=== PATIENT | female | born 1945 | race Caucasian/White ===

== ENCOUNTER → 2017-10-11 11:39 | Outpatient (CLI) | payer MEDICARE, OTHER, SELFPAY ==
--- NOTE | 2017-10-11 | DI.MG.S_ITS ---
BILATERAL DIGITAL SCREENING MAMMOGRAM 3D/2D WITH CAD: 10/11/2017 CLINICAL: Routine screening. Comparison is made to exams dated: 08/18/2016 mammogram, 08/12/2015 mammogram, and 08/10/2014 mammogram - [facility]. The tissue of both breasts is heterogeneously dense. This may lower the sensitivity of mammography. Current study was also evaluated with a Computer Aided Detection (CAD) system. No significant masses, calcifications, or other findings are seen in either breast. There has been no significant interval change. IMPRESSION: NEGATIVE There is no mammographic evidence of malignancy. A 1 year screening mammogram is recommended. This exam was interpreted at Station ID: [id number]. NOTE: For mammograms, a report in lay terms will be sent to the patient. Approximately 15% of breast malignancies will not be visualized mammographically. In the management of a palpable breast mass, a negative mammogram must not discourage biopsy of a clinically suspicious lesion. Electronically Signed By: Pollo brennan/summer:10/11/2017 13:10:14 letter sent: Normal Exam ACR BI-RADS Category 1: Negative 3341F
== END ==
PROVIDERS: PCP Internal Medicine; Visit Provider Internal Medicine
DX: Z12.31 Encounter for screening mammogram for malignant neoplasm of breast (principal)
CPT/HCPCS: 77063; 77067

== ENCOUNTER → 2018-07-10 14:18 | Outpatient (CLI) | payer MEDICARE, OTHER, SELFPAY ==
--- NOTE | 2018-07-10 14:21 | DI.RAD.S_ITS ---
PROCEDURE: XR KNEE LT 3V INDICATIONS: knee pain TECHNIQUE: 3 views of the knee were acquired. COMPARISON: [facility], , KNEE 3V RIGHT, 11/26/2006, 11:09. FINDINGS: Bones: No fractures or dislocations. Mildly decreased medial joint space loss with marginal spur formation. No suspicious bony lesions. Soft tissues: Very small joint effusion. No suspicious soft tissue calcifications. IMPRESSION: 1. Very small joint effusion present. 2. Mild medial compartment osteoarthritic changes. Dictated by: Manda Wright M.D. on 07/10/2018 at 17:11 Approved by: Manda Wright M.D. on 07/10/2018 at 17:13
== END ==
PROVIDERS: PCP Internal Medicine; Visit Provider Physician Assistant
DX: M25.562 Pain in left knee (principal); M17.12 Unilateral primary osteoarthritis, left knee
CPT/HCPCS: 73562

== ENCOUNTER → 2018-07-31 17:02 | Outpatient (CLI) | payer MEDICARE, OTHER, SELFPAY ==
--- NOTE | 2018-07-31 | DI.MRI.S_ITS ---
PROCEDURE: MR KNEE LT WO CON INDICATIONS: PAIN IN LEFT KNEE TECHNIQUE: Noncontrast sagittal PD fast spin echo and T2 fast spin echo with fat saturation, sagittal 3-D FLASH with fat saturation; coronal T1 spin echo and PD fast spin echo with fat saturation, and axial PD fast spin echo with fat saturation through the knee. COMPARISON: None. FINDINGS: Image quality: Excellent. Menisci: Truncation of the free margin of the lateral meniscal body. Circumferential tear of the medial meniscus involving the anterior horn, body and posterior horn. There is also mild partial extrusion. Cruciate ligaments: The anterior and posterior cruciate ligaments appear intact. Medial structures: The medial collateral ligament appears intact. The posterior oblique ligament, semimembranosus tendon insertions, oblique popliteal ligament, and meniscocapsular junction appear intact. Visualized portions of the pes anserinus tendons appear normal. No abnormal bursal fluid. Lateral structures: The lateral collateral ligament, long and short heads of the biceps femoris tendon appear intact. The popliteus tendon appears normal; the popliteofibular ligament appears intact. The posterosuperior and anteroinferior popliteomeniscal fascicles appear intact. The arcuate and fabellofibular ligaments appear intact, on either side of the lateral inferior geniculate artery. Iliotibial band appears normal. Anterior structures: Quadriceps tendon intact. There is thickening and intrasubstance signal change involving the patellar tendon suggestive of chronic interstitial tear and tendinopathy. There is superficial infrapatellar subcutaneous edema adjacent to the proximal and distal patellar attachments. Patellar alignment is normal. No femoral trochlear dysplasia or ventral trochlear prominence. No edema in the infrapatellar fat pad. Bones and cartilage: No focal marrow contusion or discrete low signal fracture line. Within the medial compartment, diffuse mild partial thickness loss of the femoral and tibial articular cartilage. Within the lateral compartment, no definite focal articular cartilage defect although mild intrasubstance signal change involving the central tibial cartilage. Within the patellofemoral compartment, diffuse partial-thickness loss of the patellar articular cartilage with subchondral marrow cystic change/edema seen in the median patellar ridge. Femoral trochlear cartilage appears grossly intact. Joint space: Small joint effusion is present. There is a small Tinsley's cyst. No intra-articular loose bodies identified. A possible 5 mm loose body seen adjacent to the body of the lateral meniscus on image 23 series 10, image 107 series 8 IMPRESSION: Truncation of the free margin of the lateral meniscus. Complex circumferential macerated medial meniscal tear. 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 Mild tricompartmental degeneration. Small joint effusion. 5 mm loose body adjacent to the lateral meniscus body. Small Tinsley's cyst. Dictated by: Jonny Callahan M.D. on 08/01/2018 at 8:39 Approved by: Jonny Callahan M.D. on 08/01/2018 at 8:53
== END ==
PROVIDERS: PCP Internal Medicine; Visit Provider Internal Medicine
DX: M25.562 Pain in left knee (principal); S83.272A Complex tear of lateral meniscus, current injury, left knee, initial encounter; M67.864 Other specified disorders of tendon, left knee; M17.12 Unilateral primary osteoarthritis, left knee; M25.462 Effusion, left knee; M71.22 Synovial cyst of popliteal space [Baker], left knee
CPT/HCPCS: 73721

== ENCOUNTER → 2018-10-16 08:47 | Outpatient (CLI) | payer MEDICARE, OTHER, SELFPAY ==
--- NOTE | 2018-10-16 | DI.MG.S_ITS ---
BILATERAL DIGITAL SCREENING MAMMOGRAM 3D/2D WITH CAD: 10/16/2018 CLINICAL: Routine screening. Comparison is made to exams dated: 10/11/2017 mammogram, 08/18/2016 mammogram, 08/12/2015 mammogram, 07/14/2013 mammogram, and 08/10/2014 mammogram - [facility]. The tissue of both breasts is heterogeneously dense. This may lower the sensitivity of mammography. Current study was also evaluated with a Computer Aided Detection (CAD) system. There is an oval equal density asymmetry with an indistinct and circumscribed margin in the right breast middle depth superior region seen on the mediolateral oblique view only. No other significant masses, calcifications, or other findings are seen in either breast. IMPRESSION: INCOMPLETE: NEEDS ADDITIONAL IMAGING EVALUATION The oval equal density asymmetry in the right breast is indeterminate. Mediolateral and spot compression views as well as additional views with possible ultrasound are recommended. This exam was interpreted at Station ID: [id number]. NOTE: For mammograms, a report in lay terms will be sent to the patient. Approximately 15% of breast malignancies will not be visualized mammographically. In the management of a palpable breast mass, a negative mammogram must not discourage biopsy of a clinically suspicious lesion. Electronically Signed By: Nima loera/summer:10/16/2018 14:57:37 letter sent: Additional Imaging Needed ACR BI-RADS Category 0: Incomplete 3340F
== END ==
PROVIDERS: PCP Internal Medicine; Visit Provider Internal Medicine
DX: Z12.31 Encounter for screening mammogram for malignant neoplasm of breast (principal)
CPT/HCPCS: 77063; 77067

== ENCOUNTER → 2018-11-04 09:08 | Outpatient (CLI) | payer MEDICARE, OTHER, SELFPAY ==
--- NOTE | 2018-11-04 | DI.MG.S_ITS ---
UNILATERAL RIGHT DIGITAL DIAGNOSTIC MAMMOGRAM 3D/2D WITH ADDITIONAL VIEWS: 11/04/2018 CLINICAL: Additional evaluation requested from prior study. Comparison is made to exams dated: 10/16/2018 mammogram, 10/11/2017 mammogram, and 08/18/2016 mammogram - [facility]. The tissue of right breast is heterogeneously dense. This may lower the sensitivity of mammography. Ther oval equal density asymmetry with an indistinct and circumscribed margin in the right breast middle depth superior region seen on the mediolateral oblique view only is no longer seen with additional views and spot compression. There also is 0.7 cm x 0.8 cm irregular asymmetry with a circumscribed margin in the right breast at 12 o'clock anterior depth. No other significant masses or calcifications are seen in the breast. IMPRESSION: INCOMPLETE: NEEDS ADDITIONAL IMAGING EVALUATION The oval asymmetry in the right breast middle depth superior region resolves with special views. This will be confirmed with ultrasound. The 0.7 cm x 0.8 cm irregular asymmetry in the right breast at 12 o'clock anterior depth is indeterminate. An ultrasound is recommended. This was performed immediately following this exam. This exam was interpreted at Station ID: [id number]. NOTE: For mammograms, a report in lay terms will be sent to the patient. Approximately 15% of breast malignancies will not be visualized mammographically. In the management of a palpable breast mass, a negative mammogram must not discourage biopsy of a clinically suspicious lesion. Electronically Signed By: Manda pereyra/:11/04/2018 11:13:59 ACR BI-RADS Category 0: Incomplete 3340F
--- NOTE | 2018-11-04 | DI.US.S_ITS ---
LIMITED ULTRASOUND OF RIGHT BREAST: 11/04/2018 CLINICAL: Patient returns today to evaluate a focal asymmetry in the right breast. Comparison is made to exams dated: 11/04/2018 mammogram and 10/16/2018 mammogram - [facility]. Color flow and real-time ultrasound of the right breast 11-1 o'clock region were performed. Dominguez scale images of the real-time examination were reviewed. No abnormalities were seen sonographically in the right breast. No findings to correspond to the superior breast asymmetry seen on screening, or the 7 mm asymmetry seen on additional views. IMPRESSION: PROBABLY BENIGN No sonographic abnormality to correspond to mammographic findings. These areas are likely benign glandular tissue. A follow-up right mammogram in 6 months is recommended to demonstrate stability. Findings and recommendations were conveyed to the patient at time of exam. This exam was interpreted at Station ID: [id number]. Electronically Signed By: Manda pereyra/:11/04/2018 11:17:47 letter sent: Followup Recommended Ultrasound BI-RADS: 3 Probably benign
== END ==
PROVIDERS: PCP Internal Medicine; Visit Provider Internal Medicine
DX: R92.8 Other abnormal and inconclusive findings on diagnostic imaging of breast (principal); N64.89 Other specified disorders of breast
CPT/HCPCS: 76642; 77065; G0279

== ENCOUNTER → 2019-01-10 08:17 | Outpatient (CLI) | payer MEDICARE, OTHER, SELFPAY ==
[2019-01-10 10:02] LABS: Alanine Aminotransferase 14 IU/L (9-52); Aspartate Aminotransferase 19 IU/L (14-36); BUN Creatinine Ratio 24.3 (6-22); Blood Urea Nitrogen 17 mg/dL (7-17); Calcium 9.5 mg/dL (8.4-10.2); Carbon Dioxide 30 mmol/L (22-32); Chloride 102 mmol/L (98-107); Cholesterol 143 mg/dL (140-199); Estimated Glomerular Filt Rate > 60.0 mL/min (>60); Glucose 127 mg/dL (80-110); HDL Cholesterol 46 mg/dL (40-60); HEMOLYSIS < 15 (0-50); LDL Cholesterol Calculated 79 mg/dL (<100); Potassium 3.8 mmol/L (3.4-5.1); Sodium 142 mmol/L (137-145); Triglycerides 92 mg/dL (35-150)
[2019-01-10 10:12] LABS: B Type Natriuretic Peptide < 100 (<100)
[2019-01-10 10:34] LABS: Thyroid Stimulating Hormone 2.28 uIU/mL (0.47-4.68)
== END ==
PROVIDERS: PCP Internal Medicine; Visit Provider Internal Medicine
DX: I10 Essential (primary) hypertension (principal); E78.00 Pure hypercholesterolemia, unspecified; M79.89 Other specified soft tissue disorders; E11.9 Type 2 diabetes mellitus without complications; R06.02 Shortness of breath
CPT/HCPCS: 36415; 80048; 80061; 83036; 83880; 84443; 84450; 84460

== ENCOUNTER → 2019-01-22 15:08 | Outpatient (CLI) | payer MEDICARE, OTHER, SELFPAY | PROVIDERS: PCP Internal Medicine; Visit Provider Internal Medicine | DX: M85.851 Other specified disorders of bone density and structure, right thigh (principal); Z78.0 Asymptomatic menopausal state; E11.9 Type 2 diabetes mellitus without complications; Z90.722 Acquired absence of ovaries, bilateral | CPT/HCPCS: 77080 ==

== ENCOUNTER → 2019-02-17 14:57 | Outpatient (CLI) | payer MEDICARE, OTHER, SELFPAY ==
[2019-02-17 16:10] LABS: Add Manual Diff / Slide Review NO; Basophils Absolute Auto 0 /uL (0-100); Basophils Percent Auto 0.3 % (0-2); Eosinophils Absolute Auto 100 /uL (0-450); Eosinophils Percent Auto 1.2 % (2-4); Hematocrit 39.5 % (36-46); Hemoglobin 13.2 g/dL (12.0-16.0); Lymphocytes Absolute Auto 1800 /uL (1100-4500); Lymphocytes Percent Auto 30.3 % (25-40); Mean Corpuscular HGB Conc 33.4 % (30-36); Mean Corpuscular Hemoglobin 28.4 PG (26-34); Mean Corpuscular Volume 85.2 fL (80-100); Monocytes Absolute Auto 400 /uL (0-900); Monocytes Percent Auto 6.1 % (3-14); Neutrophils Absolute Auto 3700 /uL (1500-7000); Neutrophils Percent Auto 62.1 % (50-75); Platelet Count 230 X10^3/uL (150-400); Red Blood Cell Count 4.63 X10^6/uL (4.0-5.2); Red Cell Distribution Width 13.9 % (11.6-14.8)
[2019-02-17 16:39] LABS: HEMOLYSIS < 15 (0-50); Iron 95 ug/dL (37-170)
[2019-02-17 16:50] LABS: Percent Iron Saturation 26 % (15-50); Total Iron Binding Capacity 360 ug/dL (265-497); Transferrin 318 mg/dL (206-381)
[2019-02-17 16:59] LABS: Ferritin 33.1 ng/mL (11.1-264)
[2019-02-17 17:13] LABS: Vitamin B12 551 pg/mL (239-931)
== END ==
PROVIDERS: PCP Internal Medicine; Visit Provider Internal Medicine
DX: R53.82 Chronic fatigue, unspecified (principal); Z98.84 Bariatric surgery status
CPT/HCPCS: 36415; 82607; 82728; 83540; 83550; 85025

== ENCOUNTER → 2019-05-05 09:15 | Outpatient (CLI) | payer MEDICARE, OTHER, SELFPAY ==
--- NOTE | 2019-05-05 | DI.MG.S_ITS ---
UNILATERAL RIGHT DIGITAL DIAGNOSTIC MAMMOGRAM 3D/2D SHORT-TERM FOLLOW-UP: 05/05/2019 CLINICAL: Patient returns for a 6 month follow up of the right breast. Comparison is made to exams dated: 11/04/2018 mammogram, 10/16/2018 mammogram, and 10/11/2017 mammogram - [facility]. The tissue of right breast is heterogeneously dense. This may lower the sensitivity of mammography. There is a benign oval low density asymmetry with an indistinct margin in the right breast middle depth superior region seen on the mediolateral oblique view only. This is less prominent compared to the prior study and similar to older previous exams. No other significant masses or calcifications are seen in the breast. IMPRESSION: There is no mammographic evidence of malignancy. Return to annual mammogram screening schedule is recommended. This exam was interpreted at Station ID: [id number]. NOTE: For mammograms, a report in lay terms will be sent to the patient. Approximately 15% of breast malignancies will not be visualized mammographically. In the management of a palpable breast mass, a negative mammogram must not discourage biopsy of a clinically suspicious lesion. Electronically Signed By: Nima loera/:05/05/2019 09:50:01 letter sent: Normal Exam ACR BI-RADS Category 2: Benign Finding(s) 3342F
== END ==
PROVIDERS: PCP Internal Medicine; Visit Provider Internal Medicine
DX: R92.8 Other abnormal and inconclusive findings on diagnostic imaging of breast (principal); N64.89 Other specified disorders of breast
CPT/HCPCS: 77065; G0279

== ENCOUNTER → 2019-07-24 12:52 | Outpatient (CLI) | payer MEDICARE, OTHER, SELFPAY ==
--- NOTE | 2019-07-24 | DI.MRI.S_ITS ---
PROCEDURE: MR KNEE RT WO CON INDICATIONS: Unspecified internal derangement of right knee TECHNIQUE: Noncontrast sagittal PD fast spin echo and T2 fast spin echo with fat saturation, sagittal 3-D FLASH with fat saturation; coronal T1 spin echo and PD fast spin echo with fat saturation, and axial PD fast spin echo with fat saturation through the knee. COMPARISON: [facility], MR, MR KNEE LT WO CON, 07/31/2018, 17:25. FINDINGS: Image quality: Excellent. Menisci: Truncated appearance of medial meniscus is seen suggestive of interval medial partial meniscectomy. There is signal abnormality involving posterior horn remnant of medial meniscus extending to superior articulating surface concerning for recurrent tear. There is signal abnormality involving anterior horn of lateral meniscus extending to superior articulating surface concerning for subtle anterior horn lateral meniscal tear. The meniscal root ligaments appear intact. Cruciate ligaments: The anterior and posterior cruciate ligaments appear intact. Medial structures: The medial collateral ligament appears intact. The posterior oblique ligament, semimembranosus tendon insertions, oblique popliteal ligament, and meniscocapsular junction appear intact. Visualized portions of the pes anserinus tendons appear normal. No abnormal bursal fluid. Lateral structures: The lateral collateral ligament, long and short heads of the biceps femoris tendon appear intact. The popliteus tendon appears normal; the popliteofibular ligament appears intact. The posterosuperior and anteroinferior popliteomeniscal fascicles appear intact. The arcuate and fabellofibular ligaments appear intact, on either side of the lateral inferior geniculate artery. Iliotibial band appears normal. Anterior structures: Large complex fluid collection is noted in soft tissue along anterolateral patella and patellar tendon measures up to 6.7 x 4.4 x 10 cm in its largest transverse, AP and craniocaudal dimensions with internal hypointense signal debris. Finding may represent a large anterior subcutaneous soft tissue hematoma versus fluid distention of the prepatellar bursa with bursitis. The quadriceps and patellar tendons appear intact. Patellar alignment is normal. No femoral trochlear dysplasia or ventral trochlear prominence. No edema in the infrapatellar fat pad. Bones and cartilage: No bone marrow contusions or fractures. Ywkz-ek-pjdokxob joint compartment osteophytes and chondromalacia is seen most prominent in the medial femoral tibial compartment. Joint space: There is small amount of joint fluid. 3.1 x 1.3 x 6.4 cm popliteal cyst is seen. Normal appearing synovial plicae are incidentally noted. IMPRESSION: 1. Suggestion of interval partial medial meniscectomy with truncated appearance of medial meniscus. There is suggestion of recurrent tear involving posterior horn remnant and of medial meniscus extending to superior articulating surface. Finding is also concerning for subtle oblique tear involving anterior horn of lateral meniscus extending to superior articulating surface. 2. Cruciate ligaments are intact. 3. Large complex fluid collection in deep soft tissue along anterolateral aspect of patella and patella tendon which may represent organizing hematoma within soft tissue versus complex prepatellar bursal fluid secondary to bursitis. Consider aspiration of the fluid for further analysis if indicated. 4. 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 5. Small amount of joint fluid and popliteal cyst as above. Dictated by: Fly Crocker M.D. on 07/24/2019 at 17:08 Approved by: Fly Crocker M.D. on 07/24/2019 at 17:39
== END ==
PROVIDERS: PCP Internal Medicine; Referring Provider Orthopaedic Surgery Adult Reconstructive Orthopaedic Surgery; Visit Provider Orthopaedic Surgery Adult Reconstructive Orthopaedic Surgery
DX: M23.91 Unspecified internal derangement of right knee (principal); M17.11 Unilateral primary osteoarthritis, right knee; M94.261 Chondromalacia, right knee; M71.21 Synovial cyst of popliteal space [Baker], right knee
CPT/HCPCS: 73721

== ENCOUNTER → 2020-05-17 08:57 | Outpatient (CLI) | payer MEDICARE, OTHER, SELFPAY ==
[2020-05-17 10:03] LABS: Alanine Aminotransferase 14 IU/L (<35); Albumin 4.1 g/dL (3.5-5.0); Albumin Globulin Ratio 1.5 (1.0-2.8); Alkaline Phosphatase 47 U/L (38-126); Aspartate Aminotransferase 23 IU/L (14-36); Bilirubin Total 0.4 mg/dL (0.2-1.3); Blood Urea Nitrogen 21 mg/dL (7-17); Calcium 9.1 mg/dL (8.4-10.2); Carbon Dioxide 31 mmol/L (22-32); Chloride 102 mmol/L (98-107); Cholesterol 138 mg/dL (140-199); Estimated Glomerular Filt Rate > 60.0 mL/min (>60); Globulin 2.7 g/dL (1.7-4.1); Glucose 121 mg/dL (80-110); HDL Cholesterol 40 mg/dL (40-60); HEMOLYSIS < 15 (0-50); LDL Cholesterol Calculated 84 mg/dL (<100); Potassium 3.9 mmol/L (3.4-5.1); Sodium 138 mmol/L (137-145); Total Protein 6.8 g/dL (6.3-8.2); Triglycerides 71 mg/dL (35-150)
== END ==
PROVIDERS: PCP Internal Medicine; Referring Provider Internal Medicine; Visit Provider Internal Medicine
DX: R53.82 Chronic fatigue, unspecified (principal); E78.00 Pure hypercholesterolemia, unspecified; E11.9 Type 2 diabetes mellitus without complications; I10 Essential (primary) hypertension
CPT/HCPCS: 36415; 80053; 80061; 83036

== ENCOUNTER → 2020-07-22 12:58 | Outpatient (CLI) | payer MEDICARE, OTHER, SELFPAY ==
[2020-07-22] MEDS: COVID-19 VACC, Ad26(JANSSEN)/PF 0.5 ML IM (13:25)
== END ==
PROVIDERS: PCP Internal Medicine; Visit Provider Internal Medicine
DX: Z23 Encounter for immunization (principal)
CPT/HCPCS: 0031A; 91303

== ENCOUNTER → 2020-08-11 09:10 | Outpatient (CLI) | payer MEDICARE, OTHER, SELFPAY ==
--- NOTE | 2020-08-11 09:06 | DI.RAD.S_ITS ---
PROCEDURE: XR CHEST 2V INDICATIONS: PRECORDIAL PAIN TECHNIQUE: 2 views of the chest were acquired. COMPARISON: None. FINDINGS: Surgical changes and devices: None. Lungs and pleura: Lungs are clear. No pleural effusions or pneumothorax. Mediastinum: Mediastinal contours are normal. Heart size is normal. Bones and chest wall: No suspicious bony abnormalities. Soft tissues appear unremarkable. IMPRESSION: Normal for age, source of current pain symptoms is not seen. Dictated by: Darvin Hancock M.D. on 08/11/2020 at 10:38 Approved by: Darvin Hancock M.D. on 08/11/2020 at 10:38
== END ==
PROVIDERS: PCP Internal Medicine; Referring Provider Internal Medicine; Visit Provider Internal Medicine
DX: R07.2 Precordial pain (principal)
CPT/HCPCS: 71046

== ENCOUNTER → 2020-08-12 09:02 | Outpatient (CLI) | payer MEDICARE, OTHER, SELFPAY ==
--- NOTE | 2020-08-12 09:04 | DI.ECHO.S_ITS ---
[place] +---------+ Hospital +---------+ : : [address] : : : : [id number] : : : : Phone: [phone] Echocardiogram Report + + :Name: KENDRICK BULLARD Study Date: 08/12/2020 Height: 66 in : :[facility] ReadingLocation: Weight: 175 lb : : Gender: Female BSA: 1.9 m2 : :: 1945 Age: 75 yrs BP: 154/83 mmHg: :Reason For Study: Chest pain : :Ordering Physician: PEDRO PABLO, : :MORALES Performed By: Felix Espinoza : :Referring: MORALES CHAMORRO : + + Interpretation Summary The left ventricle is normal in size. The ejection fraction is estimated to be 60-65%. No significant change in LV systolic function from the previous study. Diastolic parameters suggest a pseudonormalization pattern, consistent with probable elevated filling pressures. The right ventricle is normal in size and function. There is mild tricuspid regurgitation. The right ventricular systolic pressure is estimated to be at least 25 mmHg based on an estimated right atrial pressure of 3 mm Hg. Procedure: A two-dimensional transthoracic echocardiogram with color flow and Doppler was performed. The study quality was technically adequate. Comparison is made with the echocardiogram of 08/07/2014. The patient was in sinus rhythm with heart rates between 66-74 bpm during the exam. Left Ventricle: The left ventricle is normal in size. Proximal septal thickening is noted. There is no echo evidence for significant left ventricular outflow tract obstruction. There is no thrombus. Left ventricular systolic function is normal. The ejection fraction is estimated to be 60-65%. There are no focal wall motion abnormalities. MV E/A: 1.2 Med Peak E' Aydin: 6.3 cm/sec E/E' med: 17.0. Diastolic parameters suggest a pseudonormalization pattern, consistent with probable elevated filling pressures. Right Ventricle: The right ventricle is normal in size and function. Atria: Both atria are normal in size. The left atrium has mildly decreased in size since the prior echo exam. There is no Doppler evidence for an interatrial shunt. Mitral Valve: The mitral valve leaflets appear mildly thickened, but open well. There is mild mitral annular calcification. There is trace mitral regurgitation. Aortic Valve: There is mild aortic valve sclerosis. The aortic valve is trileaflet. The aortic valve is mildly calcified. There is no aortic valve stenosis. There is trace aortic regurgitation. Tricuspid Valve: The tricuspid valve is normal in structure and function. There is mild tricuspid regurgitation. The right ventricular systolic pressure is estimated to be at least 25 mmHg based on an estimated right atrial pressure of 3 mm Hg. Pulmonic Valve: The pulmonic valve is not well seen, but is grossly normal. There is trace pulmonic regurgitation. Great Vessels: The aortic root is normal size. The dimensions of the ascending aorta are normal. The IVC is of normal diameter and collapses greater than 50% with a sniff. This suggests a low right atrial pressure of 3 mm Hg. Pericardium/ Pleura There is no pericardial effusion. There is no pleural effusion. MMode/2D Measurements & Calculations LVIDd: 4.4 cm LVOT diam: 2.1 cm LVIDs: 2.9 cm Ao root diam: 3.1 cm FS: 34.3 % asc Aorta Diam: 3.2 cm IVSd: 0.75 cm LVPWd: 0.82 cm LV powell. diameter/BSA (cm/m^2): 2.3 LV sys. diameter/BSA (cm/m^2): 1.5 LA A2 area: 15.6 cm2 RA long axis: 4.1 cm LA A4 area: 15.0 cm2 RA area: 11.5 cm2 LA length (vol): 4.2 cm RA vol: 27.4 ml LA vol: 46.7 ml RA : 14.5 ml/m2 LA vol index: 24.7 ml/m2 IVC diam: 1.6 cm RVD1 (basal): 3.3 cm TAPSE: 2.2 cm Doppler Measurements & Calculations Ao V2 max: 151.6 cm/sec LVOT Max Aydin: 141.7 cm/sec Ao V2 mean: 98.6 cm/sec LV V1 max P.0 mmHg Ao max P.2 mmHg LV V1 VTI: 28.3 cm Ao mean P.4 mmHg ERIK(I,D): 3.2 cm2 Ao V2 VTI: 30.3 cm ERIK(V,D): 3.2 cm2 sev ratio: 0.94 ERIK indexed to BSA (cm^2/m^2): 1.7 MV E max aydin: 107.4 cm/sec TR max aydin: 234.7 cm/sec MV A max aydin: 86.4 cm/sec TR max P.0 mmHg MV E/A: 1.2 PA V2 max: 90.4 cm/sec Med Peak E' Aydin: 6.3 cm/sec PA V2 mean: 64.0 cm/sec E/E' med: 17.0 PA mean P.8 mmHg Lat Peak E' Aydin: 9.7 cm/sec PA pr(Accel): 41.6 mmHg E/E' lat: 11.1 E/e' average: 14.0 MV dec time: 0.17 sec SV(LVOT): 97.8 ml Reading Physician:05:26 PM
== END ==
PROVIDERS: PCP Internal Medicine; Referring Provider Internal Medicine; Visit Provider Internal Medicine
DX: R07.9 Chest pain, unspecified (principal); I07.1 Rheumatic tricuspid insufficiency
CPT/HCPCS: 93306

== ENCOUNTER → 2020-09-27 11:05 | Outpatient (CLI) | payer MEDICARE, OTHER, SELFPAY ==
--- NOTE | 2020-09-27 11:06 | DI.MG.S_ITS ---
BILATERAL DIGITAL SCREENING MAMMOGRAM 3D/2D WITH CAD: 09/27/2020 CLINICAL: Routine screening. Comparison is made to exams dated: 10/16/2018 mammogram, 10/11/2017 mammogram, and 08/18/2016 mammogram - [facility]. The tissue of both breasts is heterogeneously dense. This may lower the sensitivity of mammography. Current study was also evaluated with a Computer Aided Detection (CAD) system. No significant masses, calcifications, or other findings are seen in either breast. There has been no significant interval change. IMPRESSION: NEGATIVE There is no mammographic evidence of malignancy. A 1 year screening mammogram is recommended. This exam was interpreted at Station ID: [id number]. NOTE: For mammograms, a report in lay terms will be sent to the patient. Approximately 15% of breast malignancies will not be visualized mammographically. In the management of a palpable breast mass, a negative mammogram must not discourage biopsy of a clinically suspicious lesion. Electronically Signed By: Morgan Mendoza M.D., jr/summer:09/28/2020 11:32:56 letter sent: Normal Exam ACR BI-RADS Category 1: Negative 3341F
== END ==
PROVIDERS: PCP Internal Medicine; Referring Provider Internal Medicine; Visit Provider Internal Medicine
DX: Z12.31 Encounter for screening mammogram for malignant neoplasm of breast (principal)
CPT/HCPCS: 77063; 77067

== ENCOUNTER → 2020-12-16 08:55 | Outpatient (CLI) | payer MEDICARE, OTHER, SELFPAY ==
[2020-12-16 10:01] LABS: Add Manual Diff / Slide Review NO; Basophils Absolute Auto 0 /uL (0-100); Basophils Percent Auto 0.4 % (0-2); Eosinophils Absolute Auto 100 /uL (0-450); Eosinophils Percent Auto 2.6 % (2-4); Hematocrit 35.4 % (36-46); Hemoglobin 11.8 g/dL (12.0-16.0); Lymphocytes Absolute Auto 1400 /uL (1100-4500); Lymphocytes Percent Auto 38.6 % (25-40); Mean Corpuscular HGB Conc 33.3 % (30-36); Mean Corpuscular Hemoglobin 28.9 PG (26-34); Mean Corpuscular Volume 86.9 fL (80-100); Monocytes Absolute Auto 200 /uL (0-900); Monocytes Percent Auto 6.7 % (3-14); Neutrophils Absolute Auto 1800 /uL (1500-7000); Neutrophils Percent Auto 51.7 % (50-75); Platelet Count 208 X10^3/uL (150-400); Red Blood Cell Count 4.07 X10^6/uL (4.0-5.2); Red Cell Distribution Width 14.4 % (11.6-14.8); White Blood Cell Count 3.5 X10^3/uL (4.5-11.0)
[2020-12-16 10:28] LABS: Hemoglobin A1C% w Est Avg Glu 6.4 % (4.0-6.0)
[2020-12-16 10:43] LABS: HEMOLYSIS < 15 (0-50); Iron 85 ug/dL (37-170)
[2020-12-16 10:55] LABS: Percent Iron Saturation 31 % (15-50); Total Iron Binding Capacity 271 ug/dL (265-497); Transferrin 192 mg/dL (206-381)
[2020-12-16 11:13] LABS: Ferritin 30 ng/mL (11-264)
[2020-12-16 16:09] LABS: Creatinine Urine Random 72.3 mg/dL; Protein (Total) Urine Random 9 mg/dL (0-12); Protein Creatinine Ratio Urine 0.12 GRAM/24H
== END ==
PROVIDERS: PCP Internal Medicine; Referring Provider Internal Medicine; Visit Provider Internal Medicine
DX: E11.59 Type 2 diabetes mellitus with other circulatory complications (principal); Z98.84 Bariatric surgery status
CPT/HCPCS: 36415; 82570; 82728; 83036; 83540; 83550; 84156; 85025

== ENCOUNTER → 2021-07-07 14:05 | Outpatient (CLI) | payer MEDICARE, OTHER, SELFPAY ==
--- NOTE | 2021-07-07 | DI.RAD.S_ITS ---
PROCEDURE: XR HIP W PEL IF DONE LT 2V INDICATIONS: Pain in left hip TECHNIQUE: AP pelvis with lateral view(s) of the left hip(s). COMPARISON: CT, ABDOMEN/PELVIS WITH CONTRAST, 04/21/2011, 14:30. FINDINGS: Bones: No fractures or dislocations. Pelvic ring appears intact. No suspicious bony lesions. Mild to moderate symmetric axial joint space narrowing with periarticular osteophyte formation bilaterally. Degenerative disc and facet disease involves the inferior lumbar spine. Soft tissues: The visualized bowel gas pattern is normal. No suspicious soft tissue calcifications. IMPRESSION: Ohda-ht-noflelpp symmetric hip joint degeneration. Dictated by: Donta Apodaca [facility] Interpreted: Rosalinda Madison MD on 07/07/2021 at 14:37 Approved by: Rosalinda Madison M.D. on 07/07/2021 at 20:43
== END ==
PROVIDERS: PCP Internal Medicine; Referring Provider Internal Medicine; Visit Provider Internal Medicine
DX: M25.552 Pain in left hip (principal); M16.12 Unilateral primary osteoarthritis, left hip
CPT/HCPCS: 73502

== ENCOUNTER 2021-07-22 14:58 | Emergency (ER) | payer MEDICARE, OTHER, SELFPAY ==
[2021-07-22] VITALS (23 sets, daily range): BP systolic 84–156; BP diastolic 56–93; PULSE 71–121; RESP 11–27; TEMP 36.6; O2SAT 91–100; BMI 24.2
--- NOTE | 2021-07-22 15:26 | DI.RAD.S_ITS ---
PROCEDURE: XR CHEST 1V INDICATIONS: Chest pain TECHNIQUE: One view of the chest was acquired. COMPARISON: None. FINDINGS: Surgical changes and devices: None. Lungs and pleura: Lungs are clear. No pleural effusions or pneumothorax. Mediastinum: Mediastinal contours appear normal. Heart size is normal. Bones and chest wall: No suspicious bony lesions. Overlying soft tissues appear unremarkable. IMPRESSION: No acute cardiopulmonary process demonstrated radiographically. Dictated by: Morgan Mendoza M.D. on 07/22/2021 at 16:28 Approved by: Morgan Mendoza M.D. on 07/22/2021 at 16:28
[2021-07-22 15:52] LABS: Add Manual Diff / Slide Review NO; Basophils Absolute Auto 0 /uL (0-100); Basophils Percent Auto 0.2 % (0-2); Eosinophils Absolute Auto 100 /uL (0-450); Eosinophils Percent Auto 1.1 % (2-4); Hematocrit 33.6 % (36-46); Hemoglobin 11.3 g/dL (12.0-16.0); Lymphocytes Absolute Auto 1400 /uL (1100-4500); Mean Corpuscular HGB Conc 33.6 % (30-36); Mean Corpuscular Volume 86.4 fL (80-100); Monocytes Absolute Auto 300 /uL (0-900); Monocytes Percent Auto 5.6 % (3-14); Neutrophils Absolute Auto 4200 /uL (1500-7000); Neutrophils Percent Auto 70.1 % (50-75); Platelet Count 208 X10^3/uL (150-400); Red Blood Cell Count 3.89 X10^6/uL (4.0-5.2); Red Cell Distribution Width 13.9 % (11.6-14.8); White Blood Cell Count 6.1 X10^3/uL (4.5-11.0)
[2021-07-22 16:01] LABS: Alanine Aminotransferase 13 IU/L (<35); Albumin 4.5 g/dL (3.5-5.0); Albumin Globulin Ratio 1.6 (1.0-2.8); Alkaline Phosphatase 47 U/L (38-126); Aspartate Aminotransferase 34 IU/L (14-36); BUN Creatinine Ratio 38.6 (6-22); Bilirubin Total 0.6 mg/dL (0.2-1.3); Blood Urea Nitrogen 27 mg/dL (7-17); Carbon Dioxide 31 mmol/L (22-32); Chloride 104 mmol/L (98-107); Creatine Kinase 152 U/L (30-135); Estimated Glomerular Filt Rate > 60.0 mL/min (>60); Globulin 2.8 g/dL (1.7-4.1); Glucose 198 mg/dL (80-110); HEMOLYSIS 23 (0-50); Lipase 113 U/L (23-300); Magnesium 1.3 mg/dL (1.6-2.3); Potassium 3.7 mmol/L (3.4-5.1); Sodium 140 mmol/L (137-145); Total Protein 7.3 g/dL (6.3-8.2)
[2021-07-22 16:16] LABS: CKMB % Relative Index 5.6 % (1.5-5.0); Creatine Kinase MB 8.52 ng/mL (<2.37)
--- NOTE | 2021-07-22 16:40 | ED.CHESTPAIN ---
HPI - Chest Pain <Alexandra Martinez DO - Last Filed: 07/25/21 09:09> General Chief Complaint: Chest Pain Stated Complaint: Chest Pains Time Seen by Provider: 07/22/21 16:39 Source: patient Mode of arrival: Ambulatory History of Present Illness HPI narrative: Patient is a 76-year-old female history of diabetes hypertension hyperlipidemia presenting today with right-sided chest discomfort. She says she has had off and on for a year but definitely much worse over the last 3 days. It does not radiate she describes it as a small discomfort. She denies any shortness of breath. She says she notices it more at night. It has not stopped her from doing her daily activities to. But she decided to get it checked out today. She has no known history of coronary artery disease Related Data Home Medications Medication Instructions Recorded Confirmed VITAMIN D (Vitamin D3) 2,000 unit PO QDAY #0 07/23/11 07/05/18 benazepril 20 mg tablet 20 mg PO HS #0 07/23/11 07/05/18 calcium carbonate 200 mg calcium #0 04/16/17 07/05/18 (500 mg) chewable tablet gabapentin 100 mg capsule #0 04/16/17 07/05/18 glipizide 2.5 mg tablet, extended #0 04/16/17 07/05/18 release 24 hr (Glucotrol XL) [cranberry extract] #0 08/30/17 07/05/18 [stool softeners] #0 08/30/17 07/05/18 multivitamin (Multiple Vitamins) #0 08/30/17 07/05/18 aspirin 81 mg tablet,delayed 81 mg PO DAILY 07/05/18 07/05/18 release (Adult Low Dose Aspirin) atorvastatin 20 mg tablet 20 mg PO DAILY 07/05/18 07/05/18 metformin 1,000 mg tablet 1,000 mg PO BID 07/05/18 07/05/18 oxybutynin chloride 5 mg tablet 5 mg PO BID 07/05/18 07/05/18 potassium 99 mg tablet 99 mg PO DAILY 07/05/18 07/05/18 turmeric root extract 500 mg 500 mg PO DAILY 07/05/18 07/05/18 capsule Previous Rx's Medication Instructions Recorded nystatin-triamcinolone 100,000 1 tye TOPICAL BID #15 gm 08/30/17 unit/g-0.1 % topical cream Allergies Allergy/AdvReac Type Severity Reaction Status Date / Time preservative in eye drops Allergy Unknown Uncoded 07/22/21 15:25 Review of Systems <Alexandra Martinez DO - Last Filed: 07/25/21 09:09> Review of Systems Narrative: GENERAL: Denies chills, fatigue, malaise, fever, sweats, travel HEENT: Denies sinus pain, ear pain, sore throat, difficulty swallowing, neck pain RESPIRATORY: Denies dyspnea, cough, wheezing, hemoptysis, sputum. CARDIOVASCULAR: See HPI GASTROINTESTINAL: Denies nausea, vomiting, abdominal pain, diarrhea, constipation, melena. : Denies dysuria, frequency, incontinence, hematuria, urinary retention, flank pain. MUSCULOSKELETAL: Denies weakness, joint pain, or bony pain SKIN: No rash, no erythema, no pruritus NEUROLOGIC: Denies weakness, dizziness, headache, numbness, change in speech, confusion PSYCHIATRIC: No concerning psychosocial issues. 12 point review of systems is negative except for those stated above and HPI Patient History <Alexandra Martinez DO - Last Filed: 07/25/21 09:09> Social History Smoking Status: Never smoker Smoking Status: Never smoker alcohol intake frequency: other Substance Use Type: does not use Exam <Alexandra Martinez DO - Last Filed: 07/25/21 09:09> Initial Vital Signs Initial Vital Signs: Vital Signs Temperature 98 F 07/22/21 15:22 GENERAL: Alert well-appearing 76-year-old female appears younger than stated age HEENT: Head atraumatic,EOMI, pupils reactive, face symmetric, [moist] mucous membranes CARDIOVASCULAR: Regular rate and rhythm without murmurs, rubs or gallops. Pain is not reproducible with palpation or move RESPIRATORY: Breath sounds equal bilaterally, no wheezes rales or rhonchi. ABDOMEN: Soft, nontender. Normoactive bowel sounds all 4 quadrants. No guarding or rebound. EXTREMITIES: Normal range of motion, no clubbing or edema. Neurovascularly intact NEUROLOGICAL: Alert and oriented x4.Normal gait and speech. SKIN: Warm, dry, no laceration, no petechiae, no rashes or lesions. <DO Kavita Banda Last Filed: 07/28/21 08:20> Initial Vital Signs Initial Vital Signs: Vital Signs Temperature 98 F 07/22/21 15:22 <Pelon French MD - Last Filed: 07/23/21 11:30> Initial Vital Signs Initial Vital Signs: Vital Signs Temperature 98 F 07/22/21 15:22 Course <Alexandra Martinez DO - Last Filed: 07/25/21 09:09> Orders Ordered: Discontinued Medications Aspirin (Aspirin 81 Mg Chew Tab) 324 mg PO NOW ONE Stop: 07/22/21 16:57 Last Admin: 07/22/21 17:35 Dose: 324 mg Documented by: LENCHO Furosemide (Furosemide 40 Mg/4 Ml Vial) 40 mg IV NOW ONE Stop: 07/23/21 08:33 Last Admin: 07/23/21 08:56 Dose: 40 mg Documented by: ROBERT Heparin Sodium (Porcine) (Heparin 5,000 Unit/Ml Vial) 4,000 unit IV NOW ONE Stop: 07/22/21 16:57 Last Admin: 07/22/21 17:36 Dose: 4,000 unit Documented by: LENCHO Heparin Sodium/Dextrose (Heparin Drip) 25,000 unit in 500 mls @ 16.329 mls/hr IV CONT LYUBOV; Protocol Last Titration: 07/23/21 11:30 Dose: 0 units/kg/hr, 0 mls/hr Documented by: Titration: 07/23/21 06:05 Dose: 10.51 units/kg/hr, 14.3 mls/hr Documented by: Titration: 07/22/21 23:45 Dose: 11.24 units/kg/hr, 15.3 mls/hr Documented by: Admin: 07/22/21 17:39 Dose: 12 units/kg/hr, 16.329 mls/hr Documented by: LENCHO Nitroglycerin (Nitroglycerin) 50 mg in 250 mls @ 1.5 mls/hr IV TITRATE LYUBOV; Protocol Last Admin: 07/23/21 11:23 Dose: Not Given Documented by: LENCHO Sodium Chloride (Normal Saline 0.9%) 250 mls @ 1,000 mls/hr IV BOLUS ONE Stop: 07/23/21 11:15 Last Infusion: 07/23/21 11:24 Dose: 0 mls/hr Documented by: Admin: 07/23/21 11:04 Dose: 1,000 mls/hr Documented by: LENCHO Metoprolol Tartrate (Metoprolol Ir 25 Mg Tablet) 25 mg PO NOW ONE Stop: 07/22/21 20:26 Last Admin: 07/22/21 20:43 Dose: 25 mg Documented by: MADDY Morphine Sulfate (Morphine 2 Mg/Ml Inj) 2 mg IV NOW ONE Stop: 07/23/21 11:10 Last Admin: 07/23/21 11:11 Dose: 2 mg Documented by: LENCHO Nitroglycerin (Nitroglycerin 0.4 Mg Sl Tab) 0.4 mg SL NOW ONE Stop: 07/22/21 20:23 Last Admin: 07/22/21 20:30 Dose: 0.4 mg Documented by: MADDY Nitroglycerin (Nitroglycerin Oint 1 Inch/Gm Oint...G.) 1 inch TOP NOW ONE Stop: 07/22/21 20:23 Last Admin: 07/22/21 20:31 Dose: 1 inch Documented by: MADDY Nitroglycerin (Nitroglycerin 0.4 Mg Sl Tab) 0.4 mg SL NOW ONE Stop: 07/23/21 10:38 Last Admin: 07/23/21 10:35 Dose: 0.4 mg Documented by: LENCHO Vital Signs Vital signs: Vital Signs - 8 hr 07/23/21 03:30 07/23/21 04:00 07/23/21 04:30 Pulse Rate 69 74 69 Respiratory Rate 19 17 11 L Blood Pressure 93/55 L 108/58 L 100/62 Pulse Oximetry 96 96 97 07/23/21 05:00 07/23/21 05:30 07/23/21 06:00 Pulse Rate 62 64 65 Respiratory Rate 14 21 15 Blood Pressure 100/63 110/79 100/64 Pulse Oximetry 98 97 99 07/23/21 06:30 07/23/21 07:00 07/23/21 07:30 Pulse Rate 71 74 81 Respiratory Rate 6 L 19 21 Blood Pressure 111/66 120/75 114/62 Pulse Oximetry 100 100 96 07/23/21 08:00 07/23/21 08:30 07/23/21 09:00 Pulse Rate 76 82 71 Respiratory Rate 15 16 14 Blood Pressure 119/75 121/85 114/67 Pulse Oximetry 98 97 98 07/23/21 09:30 07/23/21 09:48 07/23/21 09:50 Pulse Rate 78 98 H 123 H Respiratory Rate 16 29 H 32 H Blood Pressure 107/68 Pulse Oximetry 97 07/23/21 09:52 07/23/21 09:54 07/23/21 09:56 Pulse Rate 124 H 81 80 Respiratory Rate 17 19 21 Blood Pressure Pulse Oximetry 81 L 07/23/21 09:58 07/23/21 10:00 07/23/21 10:02 Pulse Rate 78 77 74 Respiratory Rate 16 17 13 Blood Pressure 111/70 Pulse Oximetry 100 100 100 07/23/21 10:04 07/23/21 10:06 07/23/21 10:08 Pulse Rate 77 78 77 Respiratory Rate 25 H 15 15 Blood Pressure Pulse Oximetry 100 96 98 07/23/21 10:10 07/23/21 10:12 07/23/21 10:14 Pulse Rate 76 76 75 Respiratory Rate 15 16 13 Blood Pressure Pulse Oximetry 87 L 90 L 98 07/23/21 10:16 07/23/21 10:18 07/23/21 10:20 Pulse Rate 79 81 105 H Respiratory Rate 17 17 46 H Blood Pressure Pulse Oximetry 99 100 99 07/23/21 10:22 07/23/21 10:24 07/23/21 10:26 Pulse Rate 108 H 158 H 88 Respiratory Rate 39 H 35 H 27 H Blood Pressure Pulse Oximetry 100 07/23/21 10:28 07/23/21 10:30 07/23/21 10:32 Pulse Rate 103 H 86 80 Respiratory Rate 30 H 20 22 Blood Pressure 126/76 Pulse Oximetry 100 99 99 07/23/21 10:34 07/23/21 10:35 07/23/21 10:36 Pulse Rate 90 84 86 Respiratory Rate 44 H 23 Blood Pressure 126/76 Pulse Oximetry 100 100 07/23/21 10:37 07/23/21 10:38 07/23/21 10:40 Pulse Rate 84 85 91 H Respiratory Rate 20 17 21 Blood Pressure 126/76 Pulse Oximetry 100 100 99 07/23/21 10:42 07/23/21 10:44 07/23/21 10:46 Pulse Rate 89 76 75 Respiratory Rate 12 15 21 Blood Pressure Pulse Oximetry 98 97 99 07/23/21 10:48 07/23/21 10:50 07/23/21 10:51 Pulse Rate 67 66 66 Respiratory Rate 18 16 15 Blood Pressure 68/37 L Pulse Oximetry 99 98 98 07/23/21 10:52 07/23/21 10:53 07/23/21 10:54 Pulse Rate 65 57 L 62 Respiratory Rate 18 12 16 Blood Pressure 68/42 L Pulse Oximetry 98 98 97 07/23/21 10:56 07/23/21 10:57 07/23/21 10:58 Pulse Rate 63 64 73 Respiratory Rate 13 12 29 H Blood Pressure 74/49 L Pulse Oximetry 99 100 99 07/23/21 11:00 07/23/21 11:01 07/23/21 11:02 Pulse Rate 66 67 66 Respiratory Rate 12 11 L 13 Blood Pressure 89/52 L Pulse Oximetry 100 100 100 <Teodoro Saleem DO - Last Filed: 07/28/21 08:20> Orders Ordered: Discontinued Medications Aspirin (Aspirin 81 Mg Chew Tab) 324 mg PO NOW ONE Stop: 07/22/21 16:57 Last Admin: 07/22/21 17:35 Dose: 324 mg Documented by: LENCHO Furosemide (Furosemide 40 Mg/4 Ml Vial) 40 mg IV NOW ONE Stop: 07/23/21 08:33 Last Admin: 07/23/21 08:56 Dose: 40 mg Documented by: ROBERT Heparin Sodium (Porcine) (Heparin 5,000 Unit/Ml Vial) 4,000 unit IV NOW ONE Stop: 07/22/21 16:57 Last Admin: 07/22/21 17:36 Dose: 4,000 unit Documented by: LENCHO Heparin Sodium/Dextrose (Heparin Drip) 25,000 unit in 500 mls @ 16.329 mls/hr IV CONT LYUBOV; Protocol Last Titration: 07/23/21 11:30 Dose: 0 units/kg/hr, 0 mls/hr Documented by: Titration: 07/23/21 06:05 Dose: 10.51 units/kg/hr, 14.3 mls/hr Documented by: Titration: 07/22/21 23:45 Dose: 11.24 units/kg/hr, 15.3 mls/hr Documented by: Admin: 07/22/21 17:39 Dose: 12 units/kg/hr, 16.329 mls/hr Documented by: LENCHO Nitroglycerin (Nitroglycerin) 50 mg in 250 mls @ 1.5 mls/hr IV TITRATE LYUBOV; Protocol Last Admin: 07/23/21 11:23 Dose: Not Given Documented by: LECNHO Sodium Chloride (Normal Saline 0.9%) 250 mls @ 1,000 mls/hr IV BOLUS ONE Stop: 07/23/21 11:15 Last Infusion: 07/23/21 11:24 Dose: 0 mls/hr Documented by: Admin: 07/23/21 11:04 Dose: 1,000 mls/hr Documented by: LENCHO Metoprolol Tartrate (Metoprolol Ir 25 Mg Tablet) 25 mg PO NOW ONE Stop: 07/22/21 20:26 Last Admin: 07/22/21 20:43 Dose: 25 mg Documented by: MADDY Morphine Sulfate (Morphine 2 Mg/Ml Inj) 2 mg IV NOW ONE Stop: 07/23/21 11:10 Last Admin: 07/23/21 11:11 Dose: 2 mg Documented by: LENCHO Nitroglycerin (Nitroglycerin 0.4 Mg Sl Tab) 0.4 mg SL NOW ONE Stop: 07/22/21 20:23 Last Admin: 07/22/21 20:30 Dose: 0.4 mg Documented by: MADDY Nitroglycerin (Nitroglycerin Oint 1 Inch/Gm Oint...G.) 1 inch TOP NOW ONE Stop: 07/22/21 20:23 Last Admin: 07/22/21 20:31 Dose: 1 inch Documented by: MADDY Nitroglycerin (Nitroglycerin 0.4 Mg Sl Tab) 0.4 mg SL NOW ONE Stop: 07/23/21 10:38 Last Admin: 07/23/21 10:35 Dose: 0.4 mg Documented by: LENCHO Vital Signs Vital signs: Vital Signs - 8 hr 07/23/21 03:30 07/23/21 04:00 07/23/21 04:30 Pulse Rate 69 74 69 Respiratory Rate 19 17 11 L Blood Pressure 93/55 L 108/58 L 100/62 Pulse Oximetry 96 96 97 07/23/21 05:00 07/23/21 05:30 07/23/21 06:00 Pulse Rate 62 64 65 Respiratory Rate 14 21 15 Blood Pressure 100/63 110/79 100/64 Pulse Oximetry 98 97 99 07/23/21 06:30 07/23/21 07:00 07/23/21 07:30 Pulse Rate 71 74 81 Respiratory Rate 6 L 19 21 Blood Pressure 111/66 120/75 114/62 Pulse Oximetry 100 100 96 07/23/21 08:00 07/23/21 08:30 07/23/21 09:00 Pulse Rate 76 82 71 Respiratory Rate 15 16 14 Blood Pressure 119/75 121/85 114/67 Pulse Oximetry 98 97 98 07/23/21 09:30 07/23/21 09:48 07/23/21 09:50 Pulse Rate 78 98 H 123 H Respiratory Rate 16 29 H 32 H Blood Pressure 107/68 Pulse Oximetry 97 07/23/21 09:52 07/23/21 09:54 07/23/21 09:56 Pulse Rate 124 H 81 80 Respiratory Rate 17 19 21 Blood Pressure Pulse Oximetry 81 L 07/23/21 09:58 07/23/21 10:00 07/23/21 10:02 Pulse Rate 78 77 74 Respiratory Rate 16 17 13 Blood Pressure 111/70 Pulse Oximetry 100 100 100 07/23/21 10:04 07/23/21 10:06 07/23/21 10:08 Pulse Rate 77 78 77 Respiratory Rate 25 H 15 15 Blood Pressure Pulse Oximetry 100 96 98 07/23/21 10:10 07/23/21 10:12 07/23/21 10:14 Pulse Rate 76 76 75 Respiratory Rate 15 16 13 Blood Pressure Pulse Oximetry 87 L 90 L 98 07/23/21 10:16 07/23/21 10:18 07/23/21 10:20 Pulse Rate 79 81 105 H Respiratory Rate 17 17 46 H Blood Pressure Pulse Oximetry 99 100 99 07/23/21 10:22 07/23/21 10:24 07/23/21 10:26 Pulse Rate 108 H 158 H 88 Respiratory Rate 39 H 35 H 27 H Blood Pressure Pulse Oximetry 100 07/23/21 10:28 07/23/21 10:30 07/23/21 10:32 Pulse Rate 103 H 86 80 Respiratory Rate 30 H 20 22 Blood Pressure 126/76 Pulse Oximetry 100 99 99 07/23/21 10:34 07/23/21 10:35 07/23/21 10:36 Pulse Rate 90 84 86 Respiratory Rate 44 H 23 Blood Pressure 126/76 Pulse Oximetry 100 100 07/23/21 10:37 07/23/21 10:38 07/23/21 10:40 Pulse Rate 84 85 91 H Respiratory Rate 20 17 21 Blood Pressure 126/76 Pulse Oximetry 100 100 99 07/23/21 10:42 07/23/21 10:44 07/23/21 10:46 Pulse Rate 89 76 75 Respiratory Rate 12 15 21 Blood Pressure Pulse Oximetry 98 97 99 07/23/21 10:48 07/23/21 10:50 07/23/21 10:51 Pulse Rate 67 66 66 Respiratory Rate 18 16 15 Blood Pressure 68/37 L Pulse Oximetry 99 98 98 07/23/21 10:52 07/23/21 10:53 07/23/21 10:54 Pulse Rate 65 57 L 62 Respiratory Rate 18 12 16 Blood Pressure 68/42 L Pulse Oximetry 98 98 97 07/23/21 10:56 07/23/21 10:57 07/23/21 10:58 Pulse Rate 63 64 73 Respiratory Rate 13 12 29 H Blood Pressure 74/49 L Pulse Oximetry 99 100 99 07/23/21 11:00 07/23/21 11:01 07/23/21 11:02 Pulse Rate 66 67 66 Respiratory Rate 12 11 L 13 Blood Pressure 89/52 L Pulse Oximetry 100 100 100 <Pelon French MD - Last Filed: 07/23/21 11:30> Course Course Narrative: Care was assumed this morning at change of shift from Dr. Saleem. Patient is a 76-year-old female who presented with 3 days of intermittent chest pain. Non-STEMI was discovered. On repeat EKGs there is no acute ST changes. The initial positive troponin has increased. Upon my arrival, she is on heparin drip, and asymptomatic. Elevated BNP is noted. She does take Lasix. She is given a dose of IV Lasix. While moving back and forth to the bedside commode she developed chest pain 6/10 once again. She had previously received nitroglycerin, with brief dips in her blood pressure. This time, with a single dose of sublingual nitro, her systolic blood pressure decreased to 66. The patient is pale and dizzy. Her blood pressure recovered with 250 mL normal saline bolus. Nitroglycerin drip was planned but aborted. Pain persist even as her blood pressure returns. Fortunately Morphine did improve but not eliminate her chest pain. A 3rd EKG is obtained, showing normal sinus rhythm rate 75 beats per minute. She has a first-degree AV block. Nonspecific ST T wave changes, no STEMI. Troponin has increased from the initial reading of 1.01 yesterday, 1.99, and now 3.4 this morning. There have been multiple calls to transfer her to multiple [facility] hospitals, no beds have been available. She is now non-STEMI, clinically unstable. With ongoing conversation with Dr. Myrick, cardiology at [facility], it is decided to initiate a Code Cath process. Blood pressure is currently 120s, heart rate 70s. The patient is not pain-free but has improved. The patient has also been discussed with [facility] ER, Dr. Woo, as this will be an ER to ER transfer.Romi JAMES 07/23/21@11:25. Orders Ordered: Discontinued Medications Aspirin (Aspirin 81 Mg Chew Tab) 324 mg PO NOW ONE Stop: 07/22/21 16:57 Last Admin: 07/22/21 17:35 Dose: 324 mg Documented by: LENCHO Furosemide (Furosemide 40 Mg/4 Ml Vial) 40 mg IV NOW ONE Stop: 07/23/21 08:33 Last Admin: 07/23/21 08:56 Dose: 40 mg Documented by: ROBERT Heparin Sodium (Porcine) (Heparin 5,000 Unit/Ml Vial) 4,000 unit IV NOW ONE Stop: 07/22/21 16:57 Last Admin: 07/22/21 17:36 Dose: 4,000 unit Documented by: LENCHO Heparin Sodium/Dextrose (Heparin Drip) 25,000 unit in 500 mls @ 16.329 mls/hr IV CONT LYUBOV; Protocol Last Titration: 07/23/21 11:30 Dose: 0 units/kg/hr, 0 mls/hr Documented by: Titration: 07/23/21 06:05 Dose: 10.51 units/kg/hr, 14.3 mls/hr Documented by: Titration: 07/22/21 23:45 Dose: 11.24 units/kg/hr, 15.3 mls/hr Documented by: Admin: 07/22/21 17:39 Dose: 12 units/kg/hr, 16.329 mls/hr Documented by: LENCHO Nitroglycerin (Nitroglycerin) 50 mg in 250 mls @ 1.5 mls/hr IV TITRATE LYUBOV; Protocol Last Admin: 07/23/21 11:23 Dose: Not Given Documented by: LENCHO Sodium Chloride (Normal Saline 0.9%) 250 mls @ 1,000 mls/hr IV BOLUS ONE Stop: 07/23/21 11:15 Last Infusion: 07/23/21 11:24 Dose: 0 mls/hr Documented by: Admin: 07/23/21 11:04 Dose: 1,000 mls/hr Documented by: LENCHO Metoprolol Tartrate (Metoprolol Ir 25 Mg Tablet) 25 mg PO NOW ONE Stop: 07/22/21 20:26 Last Admin: 07/22/21 20:43 Dose: 25 mg Documented by: MADDY Morphine Sulfate (Morphine 2 Mg/Ml Inj) 2 mg IV NOW ONE Stop: 07/23/21 11:10 Last Admin: 07/23/21 11:11 Dose: 2 mg Documented by: LENCHO Nitroglycerin (Nitroglycerin 0.4 Mg Sl Tab) 0.4 mg SL NOW ONE Stop: 07/22/21 20:23 Last Admin: 07/22/21 20:30 Dose: 0.4 mg Documented by: MADDY Nitroglycerin (Nitroglycerin Oint 1 Inch/Gm Oint...G.) 1 inch TOP NOW ONE Stop: 07/22/21 20:23 Last Admin: 07/22/21 20:31 Dose: 1 inch Documented by: MADDY Nitroglycerin (Nitroglycerin 0.4 Mg Sl Tab) 0.4 mg SL NOW ONE Stop: 07/23/21 10:38 Last Admin: 07/23/21 10:35 Dose: 0.4 mg Documented by: LENCHO Vital Signs Vital signs: Vital Signs - 8 hr 07/23/21 03:30 07/23/21 04:00 07/23/21 04:30 Pulse Rate 69 74 69 Respiratory Rate 19 17 11 L Blood Pressure 93/55 L 108/58 L 100/62 Pulse Oximetry 96 96 97 07/23/21 05:00 07/23/21 05:30 07/23/21 06:00 Pulse Rate 62 64 65 Respiratory Rate 14 21 15 Blood Pressure 100/63 110/79 100/64 Pulse Oximetry 98 97 99 07/23/21 06:30 07/23/21 07:00 07/23/21 07:30 Pulse Rate 71 74 81 Respiratory Rate 6 L 19 21 Blood Pressure 111/66 120/75 114/62 Pulse Oximetry 100 100 96 07/23/21 08:00 07/23/21 08:30 07/23/21 09:00 Pulse Rate 76 82 71 Respiratory Rate 15 16 14 Blood Pressure 119/75 121/85 114/67 Pulse Oximetry 98 97 98 07/23/21 09:30 07/23/21 09:48 07/23/21 09:50 Pulse Rate 78 98 H 123 H Respiratory Rate 16 29 H 32 H Blood Pressure 107/68 Pulse Oximetry 97 07/23/21 09:52 07/23/21 09:54 07/23/21 09:56 Pulse Rate 124 H 81 80 Respiratory Rate 17 19 21 Blood Pressure Pulse Oximetry 81 L 07/23/21 09:58 07/23/21 10:00 07/23/21 10:02 Pulse Rate 78 77 74 Respiratory Rate 16 17 13 Blood Pressure 111/70 Pulse Oximetry 100 100 100 07/23/21 10:04 07/23/21 10:06 07/23/21 10:08 Pulse Rate 77 78 77 Respiratory Rate 25 H 15 15 Blood Pressure Pulse Oximetry 100 96 98 07/23/21 10:10 07/23/21 10:12 07/23/21 10:14 Pulse Rate 76 76 75 Respiratory Rate 15 16 13 Blood Pressure Pulse Oximetry 87 L 90 L 98 07/23/21 10:16 07/23/21 10:18 07/23/21 10:20 Pulse Rate 79 81 105 H Respiratory Rate 17 17 46 H Blood Pressure Pulse Oximetry 99 100 99 07/23/21 10:22 07/23/21 10:24 07/23/21 10:26 Pulse Rate 108 H 158 H 88 Respiratory Rate 39 H 35 H 27 H Blood Pressure Pulse Oximetry 100 07/23/21 10:28 07/23/21 10:30 07/23/21 10:32 Pulse Rate 103 H 86 80 Respiratory Rate 30 H 20 22 Blood Pressure 126/76 Pulse Oximetry 100 99 99 07/23/21 10:34 07/23/21 10:35 07/23/21 10:36 Pulse Rate 90 84 86 Respiratory Rate 44 H 23 Blood Pressure 126/76 Pulse Oximetry 100 100 07/23/21 10:37 07/23/21 10:38 07/23/21 10:40 Pulse Rate 84 85 91 H Respiratory Rate 20 17 21 Blood Pressure 126/76 Pulse Oximetry 100 100 99 07/23/21 10:42 07/23/21 10:44 07/23/21 10:46 Pulse Rate 89 76 75 Respiratory Rate 12 15 21 Blood Pressure Pulse Oximetry 98 97 99 07/23/21 10:48 07/23/21 10:50 07/23/21 10:51 Pulse Rate 67 66 66 Respiratory Rate 18 16 15 Blood Pressure 68/37 L Pulse Oximetry 99 98 98 07/23/21 10:52 07/23/21 10:53 07/23/21 10:54 Pulse Rate 65 57 L 62 Respiratory Rate 18 12 16 Blood Pressure 68/42 L Pulse Oximetry 98 98 97 07/23/21 10:56 07/23/21 10:57 07/23/21 10:58 Pulse Rate 63 64 73 Respiratory Rate 13 12 29 H Blood Pressure 74/49 L Pulse Oximetry 99 100 99 07/23/21 11:00 07/23/21 11:01 07/23/21 11:02 Pulse Rate 66 67 66 Respiratory Rate 12 11 L 13 Blood Pressure 89/52 L Pulse Oximetry 100 100 100 MDM - Chest Pain <Alexandra Martinez, DO - Last Filed: 07/25/21 09:09> Lab Data Result diagrams: 07/23/21 00:49 07/23/21 00:49 Labs: Lab Results 07/22/21 07/22/21 07/22/21 Range/Units 15:41 15:41 16:34 WBC 6.1 (4.5-11.0) X10^3/uL RBC 3.89 L (4.0-5.2) X10^6/uL Hgb 11.3 L (12.0-16.0) g/dL Hct 33.6 L (36-46) % MCV 86.4 (80-100) fL MCH 29.0 (26-34) PG MCHC 33.6 (30-36) % RDW 13.9 (11.6-14.8) % Plt Count 208 (150-400) X10^3/uL Neut % (Auto) 70.1 (50-75) % Lymph % (Auto) 23.0 L (25-40) % [place] % (Auto) 5.6 (3-14) % Eos % (Auto) 1.1 L (2-4) % Baso % (Auto) 0.2 (0-2) % Neut # (Auto) 4200 (3759-6672) /uL Lymph # (Auto) 1400 (7538-4183) /uL [place] # (Auto) 300 (0-900) /uL Eos # (Auto) 100 (0-450) /uL Baso # (Auto) 0 (0-100) /uL PT 11.4 (10.1-12.7) SECONDS INR 1.0 (0.9-1.3) APTT 29 (26.4-36.2) SECONDS Sodium 140 (137-145) mmol/L Potassium 3.7 (3.4-5.1) mmol/L Chloride 104 (98-107) mmol/L Carbon Dioxide 31 (22-32) mmol/L BUN 27 H (7-17) mg/dL Creatinine 0.70 (0.52-1.04) mg/dL Estimated GFR > 60.0 (>60) mL/min BUN/Creatinine Ratio 38.6 H (6-22) Glucose 198 H (80-110) mg/dL Calcium 9.0 (8.4-10.2) mg/dL Magnesium 1.3 L (1.6-2.3) mg/dL Total Bilirubin 0.6 (0.2-1.3) mg/dL AST 34 (14-36) IU/L ALT 13 (<35) IU/L Alkaline Phosphatase 47 (38-126) U/L Total Creatine Kinase 152 H (30-135) U/L CK-MB (CK-2) 8.52 H (<2.37) ng/mL CK-MB (CK-2) Rel Index 5.6 H (1.5-5.0) % Troponin I 1.040 H* (0.01-0.034) ng/mL NT-Pro-B Natriuret Pep (<450) pg/mL Total Protein 7.3 (6.3-8.2) g/dL Albumin 4.5 (3.5-5.0) g/dL Globulin 2.8 (1.7-4.1) g/dL Albumin/Globulin Ratio 1.6 (1.0-2.8) Lipase 113 (23-300) U/L Urine RBC (0-5/HPF) Urine WBC (0-5/HPF) Urine Bacteria (None) Ur Culture Indicated? SARS-CoV-2 (PCR) (Negative) 07/22/21 07/22/21 07/22/21 Range/Units 17:11 17:18 18:27 WBC (4.5-11.0) X10^3/uL RBC (4.0-5.2) X10^6/uL Hgb (12.0-16.0) g/dL Hct (36-46) % MCV (80-100) fL MCH (26-34) PG MCHC (30-36) % RDW (11.6-14.8) % Plt Count (150-400) X10^3/uL Neut % (Auto) (50-75) % Lymph % (Auto) (25-40) % [place] % (Auto) (3-14) % Eos % (Auto) (2-4) % Baso % (Auto) (0-2) % Neut # (Auto) (2748-4268) /uL Lymph # (Auto) (8690-5708) /uL [place] # (Auto) (0-900) /uL Eos # (Auto) (0-450) /uL Baso # (Auto) (0-100) /uL PT (10.1-12.7) SECONDS INR (0.9-1.3) APTT (26.4-36.2) SECONDS Sodium (137-145) mmol/L Potassium (3.4-5.1) mmol/L Chloride (98-107) mmol/L Carbon Dioxide (22-32) mmol/L BUN (7-17) mg/dL Creatinine (0.52-1.04) mg/dL Estimated GFR (>60) mL/min BUN/Creatinine Ratio (6-22) Glucose (80-110) mg/dL Calcium (8.4-10.2) mg/dL Magnesium (1.6-2.3) mg/dL Total Bilirubin (0.2-1.3) mg/dL AST (14-36) IU/L ALT (<35) IU/L Alkaline Phosphatase (38-126) U/L Total Creatine Kinase (30-135) U/L CK-MB (CK-2) (<2.37) ng/mL CK-MB (CK-2) Rel Index (1.5-5.0) % Troponin I 1.010 H* (0.01-0.034) ng/mL NT-Pro-B Natriuret Pep (<450) pg/mL Total Protein (6.3-8.2) g/dL Albumin (3.5-5.0) g/dL Globulin (1.7-4.1) g/dL Albumin/Globulin Ratio (1.0-2.8) Lipase (23-300) U/L Urine RBC None seen (0-5/HPF) Urine WBC 5-10/hpf H (0-5/HPF) Urine Bacteria Many (>30) H (None) Ur Culture Indicated? Specimen cultured SARS-CoV-2 (PCR) Negative (Negative) 07/22/21 07/23/21 07/23/21 Range/Units 23:20 00:49 00:49 WBC 6.5 (4.5-11.0) X10^3/uL RBC 3.75 L (4.0-5.2) X10^6/uL Hgb 10.7 L (12.0-16.0) g/dL Hct 32.4 L (36-46) % MCV 86.4 (80-100) fL MCH 28.6 (26-34) PG MCHC 33.1 (30-36) % RDW 14.0 (11.6-14.8) % Plt Count 184 (150-400) X10^3/uL Neut % (Auto) 72.0 (50-75) % Lymph % (Auto) 20.6 L (25-40) % [place] % (Auto) 6.4 (3-14) % Eos % (Auto) 0.8 L (2-4) % Baso % (Auto) 0.2 (0-2) % Neut # (Auto) 4700 (9824-9226) /uL Lymph # (Auto) 1300 (9207-4467) /uL [place] # (Auto) 400 (0-900) /uL Eos # (Auto) 100 (0-450) /uL Baso # (Auto) 0 (0-100) /uL PT (10.1-12.7) SECONDS INR (0.9-1.3) APTT 84 H* D (26.4-36.2) SECONDS Sodium 138 (137-145) mmol/L Potassium 3.7 (3.4-5.1) mmol/L Chloride 107 (98-107) mmol/L Carbon Dioxide 28 (22-32) mmol/L BUN 22 H (7-17) mg/dL Creatinine 0.67 (0.52-1.04) mg/dL Estimated GFR > 60.0 (>60) mL/min BUN/Creatinine Ratio 32.8 H (6-22) Glucose 223 H (80-110) mg/dL Calcium 8.5 (8.4-10.2) mg/dL Magnesium (1.6-2.3) mg/dL Total Bilirubin 0.6 (0.2-1.3) mg/dL AST 32 (14-36) IU/L ALT 12 (<35) IU/L Alkaline Phosphatase 40 (38-126) U/L Total Creatine Kinase 191 H (30-135) U/L CK-MB (CK-2) 12.90 H D (<2.37) ng/mL CK-MB (CK-2) Rel Index 6.8 H* (1.5-5.0) % Troponin I 1.990 H* (0.01-0.034) ng/mL NT-Pro-B Natriuret Pep (<450) pg/mL Total Protein 5.9 L (6.3-8.2) g/dL Albumin 3.6 (3.5-5.0) g/dL Globulin 2.3 (1.7-4.1) g/dL Albumin/Globulin Ratio 1.6 (1.0-2.8) Lipase (23-300) U/L Urine RBC (0-5/HPF) Urine WBC (0-5/HPF) Urine Bacteria (None) Ur Culture Indicated? SARS-CoV-2 (PCR) (Negative) 07/23/21 07/23/21 07/23/21 Range/Units 00:49 05:25 09:00 WBC (4.5-11.0) X10^3/uL RBC (4.0-5.2) X10^6/uL Hgb (12.0-16.0) g/dL Hct (36-46) % MCV (80-100) fL MCH (26-34) PG MCHC (30-36) % RDW (11.6-14.8) % Plt Count (150-400) X10^3/uL Neut % (Auto) (50-75) % Lymph % (Auto) (25-40) % [place] % (Auto) (3-14) % Eos % (Auto) (2-4) % Baso % (Auto) (0-2) % Neut # (Auto) (2636-4771) /uL Lymph # (Auto) (6544-4393) /uL [place] # (Auto) (0-900) /uL Eos # (Auto) (0-450) /uL Baso # (Auto) (0-100) /uL PT (10.1-12.7) SECONDS INR (0.9-1.3) APTT 76 H* (26.4-36.2) SECONDS Sodium (137-145) mmol/L Potassium (3.4-5.1) mmol/L Chloride (98-107) mmol/L Carbon Dioxide (22-32) mmol/L BUN (7-17) mg/dL Creatinine (0.52-1.04) mg/dL Estimated GFR (>60) mL/min BUN/Creatinine Ratio (6-22) Glucose (80-110) mg/dL Calcium (8.4-10.2) mg/dL Magnesium (1.6-2.3) mg/dL Total Bilirubin (0.2-1.3) mg/dL AST (14-36) IU/L ALT (<35) IU/L Alkaline Phosphatase (38-126) U/L Total Creatine Kinase 229 H (30-135) U/L CK-MB (CK-2) 17.30 H (<2.37) ng/mL CK-MB (CK-2) Rel Index 7.6 H* (1.5-5.0) % Troponin I 3.490 H* (0.01-0.034) ng/mL NT-Pro-B Natriuret Pep 7190 H 7140 H (<450) pg/mL Total Protein (6.3-8.2) g/dL Albumin (3.5-5.0) g/dL Globulin (1.7-4.1) g/dL Albumin/Globulin Ratio (1.0-2.8) Lipase (23-300) U/L Urine RBC (0-5/HPF) Urine WBC (0-5/HPF) Urine Bacteria (None) Ur Culture Indicated? SARS-CoV-2 (PCR) (Negative) Point of Care Testing Glucose POC 181 Urine Dip Bedside Urine Glucose Negative Bedside Urine Bilirubin - Negative Urine Specific [place] 1.010 Bedside Urine Occult Blood +/- Bedside Urine pH 6.0 Bedside Urine Protein - Negative Bedside Urine Leukocytes + 70 Esterase Imaging Data Chest x-ray: Radiologist's Impression: PROCEDURE:? XR CHEST 1V ? INDICATIONS:? Chest pain ? TECHNIQUE:? One view of the chest was acquired.? ? COMPARISON:? None. ? FINDINGS:? ? Surgical changes and devices:? None.? ? Lungs and pleura:? Lungs are clear.? No pleural effusions or pneumothorax.? ? Mediastinum:? Mediastinal contours appear normal.? Heart size is normal.? ? Bones and chest wall:? No suspicious bony lesions.? Overlying soft tissues appear unremarkable.? ? IMPRESSION:? No acute cardiopulmonary process demonstrated radiographically. ? ? Dictated by: Morgan Mendoza M.D. on 07/22/2021 at 16:28 ? ? Approved by: Morgan Mendoza M.D. on 07/22/2021 at 16:28 ? CT scan - chest: Radiologist's Impression: PROCEDURE:? CT ANGIO CHEST PE PROTOCOL ? INDICATIONS:? right sided pain + trop ? TECHNIQUE:? Helical axial CT of the chest was obtained after intravenous contrast injection utilizing an angiographic technique and reformatted in multiple planes.? Radiation dose reduction was achieved utilizing automated exposure control and/or adjustment of the dose parameters according to patient's size. ? COMPARISON:? None. ? FINDINGS:? Image quality:? Excellent.? ? Pulmonary arteries:? Pulmonary arteries are normal in size, and demonstrate no intraluminal filling defects to suggest central pulmonary embolism.? ? Lungs and pleura:? Right middle lobe platelike atelectasis or scarring.? Interstitial thickening both lung bases, right greater than left may reflect edema or interstitial pneumonitis. ? Mediastinum:? Heart size is normal, without pericardial effusion.? Dense coronary artery vascular calcification noted.? No mediastinal or hilar adenopathy.? Thoracic aorta is normal in caliber and enhancement.? Esophagus is normal in caliber, without hiatal hernia.? ? Bones and chest wall:? No suspicious bony lesions.? Ribs and thoracic spine appear intact throughout.? Thyroid gland unremarkable.? No axillary or supraclavicular adenopathy.? ? Abdomen:? Visualized upper abdominal solid organs appear normal in the early arterial phase of enhancement.? Gastric lap band in place. ? IMPRESSION:? ? 1. No evidence of pulmonary embolism, aortic dissection or aneurysm.? ? 2. Dense coronary artery calcification without cardiomegaly. ? 3. Mild septal thickening could reflect interstitial pneumonitis or edema.? Approved by: Steven Smith M.D. on 07/22/2021 at 16:55? ECG Data Interpretation: EKG 1. Normal sinus rhythm rate 83 KS interval 200 T-wave inversion noted in V2 V3 V4 without ST depressions or elevations EKG 2. Sinus rhythm persistent T-wave inversions without ST changes EKG 3. Sinus rhythm artifact noted in V2 and V3 no obvious ST changes MDM Narrative Medical decision making narrative: Patient has been having worse right-sided chest discomfort she has multiple risk factors for coronary artery disease and is found to have a troponin elevated to 1. Atypical presentation with right-sided pain CT angio does not show any pulmonary embolism. She is given aspirin and started on heparin Dr. Farley agrees with transfer [facility] suspect that they will have a bed available later tonight. Signed out to Dr. Saleem for further management an official transfer accepted <Teodoro Saleem, DO - Last Filed: 07/28/21 08:20> Lab Data Labs: Lab Results 07/22/21 07/22/21 07/22/21 Range/Units 15:41 15:41 16:34 WBC 6.1 (4.5-11.0) X10^3/uL RBC 3.89 L (4.0-5.2) X10^6/uL Hgb 11.3 L (12.0-16.0) g/dL Hct 33.6 L (36-46) % MCV 86.4 (80-100) fL MCH 29.0 (26-34) PG MCHC 33.6 (30-36) % RDW 13.9 (11.6-14.8) % Plt Count 208 (150-400) X10^3/uL Neut % (Auto) 70.1 (50-75) % Lymph % (Auto) 23.0 L (25-40) % [place] % (Auto) 5.6 (3-14) % Eos % (Auto) 1.1 L (2-4) % Baso % (Auto) 0.2 (0-2) % Neut # (Auto) 4200 (9265-1212) /uL Lymph # (Auto) 1400 (0896-1011) /uL [place] # (Auto) 300 (0-900) /uL Eos # (Auto) 100 (0-450) /uL Baso # (Auto) 0 (0-100) /uL PT 11.4 (10.1-12.7) SECONDS INR 1.0 (0.9-1.3) APTT 29 (26.4-36.2) SECONDS Sodium 140 (137-145) mmol/L Potassium 3.7 (3.4-5.1) mmol/L Chloride 104 (98-107) mmol/L Carbon Dioxide 31 (22-32) mmol/L BUN 27 H (7-17) mg/dL Creatinine 0.70 (0.52-1.04) mg/dL Estimated GFR > 60.0 (>60) mL/min BUN/Creatinine Ratio 38.6 H (6-22) Glucose 198 H (80-110) mg/dL Calcium 9.0 (8.4-10.2) mg/dL Magnesium 1.3 L (1.6-2.3) mg/dL Total Bilirubin 0.6 (0.2-1.3) mg/dL AST 34 (14-36) IU/L ALT 13 (<35) IU/L Alkaline Phosphatase 47 (38-126) U/L Total Creatine Kinase 152 H (30-135) U/L CK-MB (CK-2) 8.52 H (<2.37) ng/mL CK-MB (CK-2) Rel Index 5.6 H (1.5-5.0) % Troponin I 1.040 H* (0.01-0.034) ng/mL NT-Pro-B Natriuret Pep (<450) pg/mL Total Protein 7.3 (6.3-8.2) g/dL Albumin 4.5 (3.5-5.0) g/dL Globulin 2.8 (1.7-4.1) g/dL Albumin/Globulin Ratio 1.6 (1.0-2.8) Lipase 113 (23-300) U/L Urine RBC (0-5/HPF) Urine WBC (0-5/HPF) Urine Bacteria (None) Ur Culture Indicated? SARS-CoV-2 (PCR) (Negative) 07/22/21 07/22/21 07/22/21 Range/Units 17:11 17:18 18:27 WBC (4.5-11.0) X10^3/uL RBC (4.0-5.2) X10^6/uL Hgb (12.0-16.0) g/dL Hct (36-46) % MCV (80-100) fL MCH (26-34) PG MCHC (30-36) % RDW (11.6-14.8) % Plt Count (150-400) X10^3/uL Neut % (Auto) (50-75) % Lymph % (Auto) (25-40) % [place] % (Auto) (3-14) % Eos % (Auto) (2-4) % Baso % (Auto) (0-2) % Neut # (Auto) (8053-4227) /uL Lymph # (Auto) (8518-6049) /uL [place] # (Auto) (0-900) /uL Eos # (Auto) (0-450) /uL Baso # (Auto) (0-100) /uL PT (10.1-12.7) SECONDS INR (0.9-1.3) APTT (26.4-36.2) SECONDS Sodium (137-145) mmol/L Potassium (3.4-5.1) mmol/L Chloride (98-107) mmol/L Carbon Dioxide (22-32) mmol/L BUN (7-17) mg/dL Creatinine (0.52-1.04) mg/dL Estimated GFR (>60) mL/min BUN/Creatinine Ratio (6-22) Glucose (80-110) mg/dL Calcium (8.4-10.2) mg/dL Magnesium (1.6-2.3) mg/dL Total Bilirubin (0.2-1.3) mg/dL AST (14-36) IU/L ALT (<35) IU/L Alkaline Phosphatase (38-126) U/L Total Creatine Kinase (30-135) U/L CK-MB (CK-2) (<2.37) ng/mL CK-MB (CK-2) Rel Index (1.5-5.0) % Troponin I 1.010 H* (0.01-0.034) ng/mL NT-Pro-B Natriuret Pep (<450) pg/mL Total Protein (6.3-8.2) g/dL Albumin (3.5-5.0) g/dL Globulin (1.7-4.1) g/dL Albumin/Globulin Ratio (1.0-2.8) Lipase (23-300) U/L Urine RBC None seen (0-5/HPF) Urine WBC 5-10/hpf H (0-5/HPF) Urine Bacteria Many (>30) H (None) Ur Culture Indicated? Specimen cultured SARS-CoV-2 (PCR) Negative (Negative) 07/22/21 07/23/21 07/23/21 Range/Units 23:20 00:49 00:49 WBC 6.5 (4.5-11.0) X10^3/uL RBC 3.75 L (4.0-5.2) X10^6/uL Hgb 10.7 L (12.0-16.0) g/dL Hct 32.4 L (36-46) % MCV 86.4 (80-100) fL MCH 28.6 (26-34) PG MCHC 33.1 (30-36) % RDW 14.0 (11.6-14.8) % Plt Count 184 (150-400) X10^3/uL Neut % (Auto) 72.0 (50-75) % Lymph % (Auto) 20.6 L (25-40) % [place] % (Auto) 6.4 (3-14) % Eos % (Auto) 0.8 L (2-4) % Baso % (Auto) 0.2 (0-2) % Neut # (Auto) 4700 (5926-6003) /uL Lymph # (Auto) 1300 (5585-9169) /uL [place] # (Auto) 400 (0-900) /uL Eos # (Auto) 100 (0-450) /uL Baso # (Auto) 0 (0-100) /uL PT (10.1-12.7) SECONDS INR (0.9-1.3) APTT 84 H* D (26.4-36.2) SECONDS Sodium 138 (137-145) mmol/L Potassium 3.7 (3.4-5.1) mmol/L Chloride 107 (98-107) mmol/L Carbon Dioxide 28 (22-32) mmol/L BUN 22 H (7-17) mg/dL Creatinine 0.67 (0.52-1.04) mg/dL Estimated GFR > 60.0 (>60) mL/min BUN/Creatinine Ratio 32.8 H (6-22) Glucose 223 H (80-110) mg/dL Calcium 8.5 (8.4-10.2) mg/dL Magnesium (1.6-2.3) mg/dL Total Bilirubin 0.6 (0.2-1.3) mg/dL AST 32 (14-36) IU/L ALT 12 (<35) IU/L Alkaline Phosphatase 40 (38-126) U/L Total Creatine Kinase 191 H (30-135) U/L CK-MB (CK-2) 12.90 H D (<2.37) ng/mL CK-MB (CK-2) Rel Index 6.8 H* (1.5-5.0) % Troponin I 1.990 H* (0.01-0.034) ng/mL NT-Pro-B Natriuret Pep (<450) pg/mL Total Protein 5.9 L (6.3-8.2) g/dL Albumin 3.6 (3.5-5.0) g/dL Globulin 2.3 (1.7-4.1) g/dL Albumin/Globulin Ratio 1.6 (1.0-2.8) Lipase (23-300) U/L Urine RBC (0-5/HPF) Urine WBC (0-5/HPF) Urine Bacteria (None) Ur Culture Indicated? SARS-CoV-2 (PCR) (Negative) 07/23/21 07/23/21 07/23/21 Range/Units 00:49 05:25 09:00 WBC (4.5-11.0) X10^3/uL RBC (4.0-5.2) X10^6/uL Hgb (12.0-16.0) g/dL Hct (36-46) % MCV (80-100) fL MCH (26-34) PG MCHC (30-36) % RDW (11.6-14.8) % Plt Count (150-400) X10^3/uL Neut % (Auto) (50-75) % Lymph % (Auto) (25-40) % [place] % (Auto) (3-14) % Eos % (Auto) (2-4) % Baso % (Auto) (0-2) % Neut # (Auto) (1544-4709) /uL Lymph # (Auto) (9401-3929) /uL [place] # (Auto) (0-900) /uL Eos # (Auto) (0-450) /uL Baso # (Auto) (0-100) /uL PT (10.1-12.7) SECONDS INR (0.9-1.3) APTT 76 H* (26.4-36.2) SECONDS Sodium (137-145) mmol/L Potassium (3.4-5.1) mmol/L Chloride (98-107) mmol/L Carbon Dioxide (22-32) mmol/L BUN (7-17) mg/dL Creatinine (0.52-1.04) mg/dL Estimated GFR (>60) mL/min BUN/Creatinine Ratio (6-22) Glucose (80-110) mg/dL Calcium (8.4-10.2) mg/dL Magnesium (1.6-2.3) mg/dL Total Bilirubin (0.2-1.3) mg/dL AST (14-36) IU/L ALT (<35) IU/L Alkaline Phosphatase (38-126) U/L Total Creatine Kinase 229 H (30-135) U/L CK-MB (CK-2) 17.30 H (<2.37) ng/mL CK-MB (CK-2) Rel Index 7.6 H* (1.5-5.0) % Troponin I 3.490 H* (0.01-0.034) ng/mL NT-Pro-B Natriuret Pep 7190 H 7140 H (<450) pg/mL Total Protein (6.3-8.2) g/dL Albumin (3.5-5.0) g/dL Globulin (1.7-4.1) g/dL Albumin/Globulin Ratio (1.0-2.8) Lipase (23-300) U/L Urine RBC (0-5/HPF) Urine WBC (0-5/HPF) Urine Bacteria (None) Ur Culture Indicated? SARS-CoV-2 (PCR) (Negative) Point of Care Testing Glucose POC 181 Urine Dip Bedside Urine Glucose Negative Bedside Urine Bilirubin - Negative Urine Specific [place] 1.010 Bedside Urine Occult Blood +/- Bedside Urine pH 6.0 Bedside Urine Protein - Negative Bedside Urine Leukocytes + 70 Esterase MDM Narrative Medical decision making narrative: Patient has been having worse right-sided chest discomfort she has multiple risk factors for coronary artery disease and is found to have a troponin elevated to 1. Atypical presentation with right-sided pain CT angio does not show any pulmonary embolism. She is given aspirin and started on heparin Dr. Farley agrees with transfer [facility] suspect that they will have a bed available later tonight. Signed out to Dr. Saleem for further management an official transfer accepted 2014 - patient received in sign out from Dr. Martinez. I've reviewed the clinical course up until this point and have performed an independent history and physical exam. She's currently having a 3/10 pain again. 2100 - pain improved after above stated therapies 0100 - patient resting comfortably. Still on wait list at [facility] <Pelon French MD - Last Filed: 07/23/21 11:30> Lab Data Labs: Lab Results 07/22/21 07/22/21 07/22/21 Range/Units 15:41 15:41 16:34 WBC 6.1 (4.5-11.0) X10^3/uL RBC 3.89 L (4.0-5.2) X10^6/uL Hgb 11.3 L (12.0-16.0) g/dL Hct 33.6 L (36-46) % MCV 86.4 (80-100) fL MCH 29.0 (26-34) PG MCHC 33.6 (30-36) % RDW 13.9 (11.6-14.8) % Plt Count 208 (150-400) X10^3/uL Neut % (Auto) 70.1 (50-75) % Lymph % (Auto) 23.0 L (25-40) % [place] % (Auto) 5.6 (3-14) % Eos % (Auto) 1.1 L (2-4) % Baso % (Auto) 0.2 (0-2) % Neut # (Auto) 4200 (1756-4925) /uL Lymph # (Auto) 1400 (1611-8561) /uL [place] # (Auto) 300 (0-900) /uL Eos # (Auto) 100 (0-450) /uL Baso # (Auto) 0 (0-100) /uL PT 11.4 (10.1-12.7) SECONDS INR 1.0 (0.9-1.3) APTT 29 (26.4-36.2) SECONDS Sodium 140 (137-145) mmol/L Potassium 3.7 (3.4-5.1) mmol/L Chloride 104 (98-107) mmol/L Carbon Dioxide 31 (22-32) mmol/L BUN 27 H (7-17) mg/dL Creatinine 0.70 (0.52-1.04) mg/dL Estimated GFR > 60.0 (>60) mL/min BUN/Creatinine Ratio 38.6 H (6-22) Glucose 198 H (80-110) mg/dL Calcium 9.0 (8.4-10.2) mg/dL Magnesium 1.3 L (1.6-2.3) mg/dL Total Bilirubin 0.6 (0.2-1.3) mg/dL AST 34 (14-36) IU/L ALT 13 (<35) IU/L Alkaline Phosphatase 47 (38-126) U/L Total Creatine Kinase 152 H (30-135) U/L CK-MB (CK-2) 8.52 H (<2.37) ng/mL CK-MB (CK-2) Rel Index 5.6 H (1.5-5.0) % Troponin I 1.040 H* (0.01-0.034) ng/mL NT-Pro-B Natriuret Pep (<450) pg/mL Total Protein 7.3 (6.3-8.2) g/dL Albumin 4.5 (3.5-5.0) g/dL Globulin 2.8 (1.7-4.1) g/dL Albumin/Globulin Ratio 1.6 (1.0-2.8) Lipase 113 (23-300) U/L Urine RBC (0-5/HPF) Urine WBC (0-5/HPF) Urine Bacteria (None) Ur Culture Indicated? SARS-CoV-2 (PCR) (Negative) 07/22/21 07/22/21 07/22/21 Range/Units 17:11 17:18 18:27 WBC (4.5-11.0) X10^3/uL RBC (4.0-5.2) X10^6/uL Hgb (12.0-16.0) g/dL Hct (36-46) % MCV (80-100) fL MCH (26-34) PG MCHC (30-36) % RDW (11.6-14.8) % Plt Count (150-400) X10^3/uL Neut % (Auto) (50-75) % Lymph % (Auto) (25-40) % [place] % (Auto) (3-14) % Eos % (Auto) (2-4) % Baso % (Auto) (0-2) % Neut # (Auto) (0386-1249) /uL Lymph # (Auto) (8613-4412) /uL [place] # (Auto) (0-900) /uL Eos # (Auto) (0-450) /uL Baso # (Auto) (0-100) /uL PT (10.1-12.7) SECONDS INR (0.9-1.3) APTT (26.4-36.2) SECONDS Sodium (137-145) mmol/L Potassium (3.4-5.1) mmol/L Chloride (98-107) mmol/L Carbon Dioxide (22-32) mmol/L BUN (7-17) mg/dL Creatinine (0.52-1.04) mg/dL Estimated GFR (>60) mL/min BUN/Creatinine Ratio (6-22) Glucose (80-110) mg/dL Calcium (8.4-10.2) mg/dL Magnesium (1.6-2.3) mg/dL Total Bilirubin (0.2-1.3) mg/dL AST (14-36) IU/L ALT (<35) IU/L Alkaline Phosphatase (38-126) U/L Total Creatine Kinase (30-135) U/L CK-MB (CK-2) (<2.37) ng/mL CK-MB (CK-2) Rel Index (1.5-5.0) % Troponin I 1.010 H* (0.01-0.034) ng/mL NT-Pro-B Natriuret Pep (<450) pg/mL Total Protein (6.3-8.2) g/dL Albumin (3.5-5.0) g/dL Globulin (1.7-4.1) g/dL Albumin/Globulin Ratio (1.0-2.8) Lipase (23-300) U/L Urine RBC None seen (0-5/HPF) Urine WBC 5-10/hpf H (0-5/HPF) Urine Bacteria Many (>30) H (None) Ur Culture Indicated? Specimen cultured SARS-CoV-2 (PCR) Negative (Negative) 07/22/21 07/23/21 07/23/21 Range/Units 23:20 00:49 00:49 WBC 6.5 (4.5-11.0) X10^3/uL RBC 3.75 L (4.0-5.2) X10^6/uL Hgb 10.7 L (12.0-16.0) g/dL Hct 32.4 L (36-46) % MCV 86.4 (80-100) fL MCH 28.6 (26-34) PG MCHC 33.1 (30-36) % RDW 14.0 (11.6-14.8) % Plt Count 184 (150-400) X10^3/uL Neut % (Auto) 72.0 (50-75) % Lymph % (Auto) 20.6 L (25-40) % [place] % (Auto) 6.4 (3-14) % Eos % (Auto) 0.8 L (2-4) % Baso % (Auto) 0.2 (0-2) % Neut # (Auto) 4700 (8569-1835) /uL Lymph # (Auto) 1300 (8642-0154) /uL [place] # (Auto) 400 (0-900) /uL Eos # (Auto) 100 (0-450) /uL Baso # (Auto) 0 (0-100) /uL PT (10.1-12.7) SECONDS INR (0.9-1.3) APTT 84 H* D (26.4-36.2) SECONDS Sodium 138 (137-145) mmol/L Potassium 3.7 (3.4-5.1) mmol/L Chloride 107 (98-107) mmol/L Carbon Dioxide 28 (22-32) mmol/L BUN 22 H (7-17) mg/dL Creatinine 0.67 (0.52-1.04) mg/dL Estimated GFR > 60.0 (>60) mL/min BUN/Creatinine Ratio 32.8 H (6-22) Glucose 223 H (80-110) mg/dL Calcium 8.5 (8.4-10.2) mg/dL Magnesium (1.6-2.3) mg/dL Total Bilirubin 0.6 (0.2-1.3) mg/dL AST 32 (14-36) IU/L ALT 12 (<35) IU/L Alkaline Phosphatase 40 (38-126) U/L Total Creatine Kinase 191 H (30-135) U/L CK-MB (CK-2) 12.90 H D (<2.37) ng/mL CK-MB (CK-2) Rel Index 6.8 H* (1.5-5.0) % Troponin I 1.990 H* (0.01-0.034) ng/mL NT-Pro-B Natriuret Pep (<450) pg/mL Total Protein 5.9 L (6.3-8.2) g/dL Albumin 3.6 (3.5-5.0) g/dL Globulin 2.3 (1.7-4.1) g/dL Albumin/Globulin Ratio 1.6 (1.0-2.8) Lipase (23-300) U/L Urine RBC (0-5/HPF) Urine WBC (0-5/HPF) Urine Bacteria (None) Ur Culture Indicated? SARS-CoV-2 (PCR) (Negative) 07/23/21 07/23/21 07/23/21 Range/Units 00:49 05:25 09:00 WBC (4.5-11.0) X10^3/uL RBC (4.0-5.2) X10^6/uL Hgb (12.0-16.0) g/dL Hct (36-46) % MCV (80-100) fL MCH (26-34) PG MCHC (30-36) % RDW (11.6-14.8) % Plt Count (150-400) X10^3/uL Neut % (Auto) (50-75) % Lymph % (Auto) (25-40) % [place] % (Auto) (3-14) % Eos % (Auto) (2-4) % Baso % (Auto) (0-2) % Neut # (Auto) (9939-4332) /uL Lymph # (Auto) (1361-6890) /uL [place] # (Auto) (0-900) /uL Eos # (Auto) (0-450) /uL Baso # (Auto) (0-100) /uL PT (10.1-12.7) SECONDS INR (0.9-1.3) APTT 76 H* (26.4-36.2) SECONDS Sodium (137-145) mmol/L Potassium (3.4-5.1) mmol/L Chloride (98-107) mmol/L Carbon Dioxide (22-32) mmol/L BUN (7-17) mg/dL Creatinine (0.52-1.04) mg/dL Estimated GFR (>60) mL/min BUN/Creatinine Ratio (6-22) Glucose (80-110) mg/dL Calcium (8.4-10.2) mg/dL Magnesium (1.6-2.3) mg/dL Total Bilirubin (0.2-1.3) mg/dL AST (14-36) IU/L ALT (<35) IU/L Alkaline Phosphatase (38-126) U/L Total Creatine Kinase 229 H (30-135) U/L CK-MB (CK-2) 17.30 H (<2.37) ng/mL CK-MB (CK-2) Rel Index 7.6 H* (1.5-5.0) % Troponin I 3.490 H* (0.01-0.034) ng/mL NT-Pro-B Natriuret Pep 7190 H 7140 H (<450) pg/mL Total Protein (6.3-8.2) g/dL Albumin (3.5-5.0) g/dL Globulin (1.7-4.1) g/dL Albumin/Globulin Ratio (1.0-2.8) Lipase (23-300) U/L Urine RBC (0-5/HPF) Urine WBC (0-5/HPF) Urine Bacteria (None) Ur Culture Indicated? SARS-CoV-2 (PCR) (Negative) Point of Care Testing Glucose POC 181 Urine Dip Bedside Urine Glucose Negative Bedside Urine Bilirubin - Negative Urine Specific [place] 1.010 Bedside Urine Occult Blood +/- Bedside Urine pH 6.0 Bedside Urine Protein - Negative Bedside Urine Leukocytes + 70 Esterase Discharge Plan [facility] Impression: Non-ST elevation (NSTEMI) myocardial infarction Prescriptions: No Action metformin 1,000 mg tablet 1,000 mg PO BID 0RF atorvastatin 20 mg tablet 20 mg PO DAILY 0RF oxybutynin chloride 5 mg tablet 5 mg PO BID 0RF aspirin [Adult Low Dose Aspirin] 81 mg tablet,delayed release (DR/EC) 81 mg PO DAILY 0RF potassium 99 mg tablet 99 mg PO DAILY 0RF turmeric root extract 500 mg capsule 500 mg PO DAILY 0RF benazepril 20 MG tablet 20 mg PO HS Qty: 0 0RF VITAMIN D (Vitamin D3) 2,000 unit PO QDAY Qty: 0 0RF glipizide [Glucotrol XL] 2.5 mg tablet extended release 24hr Qty: 0 0RF calcium carbonate 200 mg calcium (500 mg) tablet,chewable Qty: 0 0RF gabapentin 100 mg capsule Qty: 0 0RF multivitamin [Multiple Vitamins] 1 EACH tablet Qty: 0 0RF [cranberry extract] Qty: 0 0RF [stool softeners] Qty: 0 0RF nystatin-triamcinolone 15 GM cream 1 tye Topical BID Qty: 15 1RF Referrals: Flor Mahoney MD [Primary Care Provider] -
--- NOTE | 2021-07-22 16:56 | DI.CT.S_ITS ---
PROCEDURE: CT ANGIO CHEST PE PROTOCOL INDICATIONS: right sided pain + trop TECHNIQUE: Helical axial CT of the chest was obtained after intravenous contrast injection utilizing an angiographic technique and reformatted in multiple planes. Radiation dose reduction was achieved utilizing automated exposure control and/or adjustment of the dose parameters according to patient's size. COMPARISON: None. FINDINGS: Image quality: Excellent. Pulmonary arteries: Pulmonary arteries are normal in size, and demonstrate no intraluminal filling defects to suggest central pulmonary embolism. Lungs and pleura: Right middle lobe platelike atelectasis or scarring. Interstitial thickening both lung bases, right greater than left may reflect edema or interstitial pneumonitis. Mediastinum: Heart size is normal, without pericardial effusion. Dense coronary artery vascular calcification noted. No mediastinal or hilar adenopathy. Thoracic aorta is normal in caliber and enhancement. Esophagus is normal in caliber, without hiatal hernia. Bones and chest wall: No suspicious bony lesions. Ribs and thoracic spine appear intact throughout. Thyroid gland unremarkable. No axillary or supraclavicular adenopathy. Abdomen: Visualized upper abdominal solid organs appear normal in the early arterial phase of enhancement. Gastric lap band in place. IMPRESSION: 1. No evidence of pulmonary embolism, aortic dissection or aneurysm. 2. Dense coronary artery calcification without cardiomegaly. 3. Mild septal thickening could reflect interstitial pneumonitis or edema. Approved by: Steven Smith M.D. on 07/22/2021 at 16:55
[2021-07-22 17:07] LABS: Prothrombin Time 11.4 SECONDS (10.1-12.7)
[2021-07-22 17:09] LABS: PTT Partial Thromboplastin Tim 29 SECONDS (26.4-36.2)
[2021-07-22] MEDS: ASPIRIN 81 MG CHEW TAB 324 MG PO (17:35)
[2021-07-22] MEDS: HEPARIN 5,000 UNIT/ML VIAL 4000 UNIT IV (17:36)
[2021-07-22] MEDS: HEPARIN DRIP 25,000 UNIT/500 ML IV.SOLN 16.329 UNIT IV (17:39)
[2021-07-22 17:49] LABS: COVID19 -Nasal RAPID Negative (Negative)
--- NOTE | 2021-07-22 18:19 | PC.NURSE ---
c/o chest pain substernal , radiating to the right chest. called for a 3rd ekg. HR 114 , bp, 144/88, oxygen sats [address] montiel aware
[2021-07-22] MEDS: NITROGLYCERIN 0.4 MG SL TAB SL ×2 (18:34→20:30)
[2021-07-22 18:36] LABS: Bacteria Urine Many (>30); Culture Indicated Urine Specimen Cultured; RBC Urine None Seen (0-5/HPF); WBC Urine 5-10/HPF (0-5/HPF)
[2021-07-22] MEDS: NITROGLYCERIN OINT 1 INCH/GM OINT...G. TOP (20:31)
--- NOTE | 2021-07-22 20:39 | PC.NURSE ---
pt began to c/o substernal chest pain, 5/10 post nitro admin pain now 0/10
[2021-07-22] MEDS: METOPROLOL IR 25 MG TABLET PO (20:43)
[2021-07-22 23:46] LABS: PTT Partial Thromboplastin Tim 84 SECONDS (26.4-36.2)
[2021-07-23] VITALS (84 sets, daily range): BP systolic 68–129; BP diastolic 37–85; PULSE 57–158; RESP 6–46; TEMP 36.4; O2SAT 81–100
--- NOTE | 2021-07-23 00:52 | PC.NURSE ---
nitro past removed [id number]
[2021-07-23 01:15] LABS: Add Manual Diff / Slide Review NO; Basophils Absolute Auto 0 /uL (0-100); Basophils Percent Auto 0.2 % (0-2); Eosinophils Absolute Auto 100 /uL (0-450); Eosinophils Percent Auto 0.8 % (2-4); Hematocrit 32.4 % (36-46); Hemoglobin 10.7 g/dL (12.0-16.0); Lymphocytes Absolute Auto 1300 /uL (1100-4500); Lymphocytes Percent Auto 20.6 % (25-40); Mean Corpuscular HGB Conc 33.1 % (30-36); Mean Corpuscular Hemoglobin 28.6 PG (26-34); Mean Corpuscular Volume 86.4 fL (80-100); Monocytes Absolute Auto 400 /uL (0-900); Monocytes Percent Auto 6.4 % (3-14); Neutrophils Absolute Auto 4700 /uL (1500-7000); Platelet Count 184 X10^3/uL (150-400); Red Blood Cell Count 3.75 X10^6/uL (4.0-5.2); White Blood Cell Count 6.5 X10^3/uL (4.5-11.0)
[2021-07-23 01:17] LABS: Alanine Aminotransferase 12 IU/L (<35); Albumin 3.6 g/dL (3.5-5.0); Albumin Globulin Ratio 1.6 (1.0-2.8); Alkaline Phosphatase 40 U/L (38-126); Aspartate Aminotransferase 32 IU/L (14-36); BUN Creatinine Ratio 32.8 (6-22); Bilirubin Total 0.6 mg/dL (0.2-1.3); Blood Urea Nitrogen 22 mg/dL (7-17); Calcium 8.5 mg/dL (8.4-10.2); Carbon Dioxide 28 mmol/L (22-32); Chloride 107 mmol/L (98-107); Creatine Kinase 191 U/L (30-135); Estimated Glomerular Filt Rate > 60.0 mL/min (>60); Globulin 2.3 g/dL (1.7-4.1); Glucose 223 mg/dL (80-110); HEMOLYSIS < 15 (0-50); Potassium 3.7 mmol/L (3.4-5.1); Sodium 138 mmol/L (137-145); Total Protein 5.9 g/dL (6.3-8.2)
[2021-07-23 01:26] LABS: NT-proBNP (BNP-Adult 18+) 7190 pg/mL (<450)
[2021-07-23 01:34] LABS: CKMB % Relative Index 6.8 % (1.5-5.0)
[2021-07-23 05:58] LABS: PTT Partial Thromboplastin Tim 76 SECONDS (26.4-36.2)
[2021-07-23] MEDS: FUROSEMIDE 40 MG/4 ML VIAL IV (08:56)
[2021-07-23 09:18] LABS: Creatine Kinase 229 U/L (30-135)
[2021-07-23 09:31] LABS: NT-proBNP (BNP-Adult 18+) 7140 pg/mL (<450)
[2021-07-23 09:54] LABS: CKMB % Relative Index 7.6 % (1.5-5.0)
[2021-07-23] MEDS: NITROGLYCERIN 0.4 MG SL TAB SL (10:35)
--- NOTE | 2021-07-23 10:35 | PC.NURSE ---
chest pain 6/10 after she got up from the toilet . dr. French at bedside. EKG. One nitro given to patient.
[2021-07-23] MEDS: SODIUM CHLORIDE 0.9% 250 ML 1000 ML IV (11:04)
[2021-07-23] MEDS: MORPHINE 2 MG/ML INJ IV (11:11)
--- NOTE | 2021-07-23 11:15 | PC.NURSE ---
pain 6/10, Bp dropped to 68/27. pt became light headed, dizzy, felt like she was going to pass out. pt became very pale. HR 80's. Dr. French at bedside. calling cardiology.
== END 2021-07-23 11:30 | disposition short-term general hospital (02) ==
PROVIDERS: Emergency Medicine; Emergency Provider Emergency Medicine; PCP Internal Medicine
DX: I21.4 Non-ST elevation (NSTEMI) myocardial infarction (principal); I10 Essential (primary) hypertension; Z20.822 Contact with and (suspected) exposure to COVID-19
CPT/HCPCS: 36415; 71045; 71275; 80053; 81003; 81015; 82550; 82553; 82962; 83690; 83735; 83880; 84484; 85025; 85610; 85730; 87077; 87086; 87186; 87635; 93005; 93010; 96365; 96366; 96375; 99285; C9803; J1644; J1940; J2270

== ENCOUNTER → 2021-10-04 11:10 | Outpatient (CLI) | payer MEDICARE, OTHER, SELFPAY ==
--- NOTE | 2021-10-04 | DI.MG.S_ITS ---
BILATERAL DIGITAL SCREENING MAMMOGRAM 3D/2D WITH CAD: 10/04/2021 CLINICAL: Routine screening. Comparison is made to exams dated: 09/27/2020 mammogram, 05/05/2019 mammogram, 11/04/2018 mammogram, and 10/16/2018 mammogram - [facility]. The tissue of both breasts is heterogeneously dense. This may lower the sensitivity of mammography. Current study was also evaluated with a Computer Aided Detection (CAD) system. There is a biopsy clip in the left breast. No significant masses, calcifications, or other findings are seen in either breast. There has been no significant interval change. IMPRESSION: NEGATIVE There is no mammographic evidence of malignancy. A 1 year screening mammogram is recommended. This exam was interpreted at Station ID: [id number]. NOTE: For mammograms, a report in lay terms will be sent to the patient. Approximately 15% of breast malignancies will not be visualized mammographically. In the management of a palpable breast mass, a negative mammogram must not discourage biopsy of a clinically suspicious lesion. Electronically Signed By: Manda pereyra/summer:10/04/2021 12:37:35 letter sent: Normal Exam ACR BI-RADS Category 1: Negative [id number]
== END ==
PROVIDERS: PCP Internal Medicine; Referring Provider Internal Medicine; Visit Provider Internal Medicine
DX: Z12.31 Encounter for screening mammogram for malignant neoplasm of breast (principal)
CPT/HCPCS: 77063; 77067

== ENCOUNTER 2022-01-19 12:30 | Outpatient (RCR) | payer MEDICARE, OTHER, SELFPAY | END 2022-01-19 14:30 | LOC: CAR 12:30 | PROVIDERS: PCP Internal Medicine; Referring Provider Internal Medicine Cardiovascular Disease; Visit Provider Internal Medicine Cardiovascular Disease | DX: Z95.1 Presence of aortocoronary bypass graft (principal) | CPT/HCPCS: 93798 ==

== ENCOUNTER → 2022-07-21 08:41 | Outpatient (CLI) | payer MEDICARE, OTHER, SELFPAY ==
[2022-07-25 13:30] LABS: Cholesterol, Total 132 mg/dL (100-199); HDL-Cholesterol 52 mg/dL (>39); HDL-Particle (Total) 31.2 umol/L (>=30.5); LDL Particle 952 nmol/L (<1000); LDL Size 20.4 nm (>20.5); LDL-Cholsterol 65 mg/dL (0-99); LP-IR Score 40 (<=45); Small LDL- Particle 539 nmol/L (<=527); Triglycerides 73 mg/dL (0-149)
== END ==
PROVIDERS: PCP Internal Medicine; Referring Provider Nurse Practitioner; Visit Provider Nurse Practitioner
DX: E78.2 Mixed hyperlipidemia (principal)
CPT/HCPCS: 36415; 80061; 83704

== ENCOUNTER → 2022-08-09 09:17 | Outpatient (CLI) | payer MEDICARE, OTHER, SELFPAY ==
--- NOTE | 2022-08-09 | DI.ECHO.S_ITS ---
[place] +---------+ [facility] +---------+ : : [address] : : : : [id number] : : : : Phone: [phone]+ Echocardiogram Report + + :Name: KENDRICK BULLARD Study Date: 08/09/2022 Height: 66 in : :[facility] ReadingLocation: Weight: 180 lb : : Gender: Female BSA: 1.9 m2 : :: 1945 Age: 77 yrs BP: 127/86 mmHg: :Reason For Study: HYPERTENSION : :Ordering Physician: JIAN, : :BAMBI Gonzalez Performed By: Adrianne Simmons : :Referring: BAMBI VILLAR : + + Interpretation Summary The left ventricle is normal in size. Left ventricular systolic function is normal. The ejection fraction is estimated to be 55-60%. Previous LV ejection fraction 60 to 65%. Diastolic parameters suggest a pseudonormalization pattern, consistent with probable elevated filling pressures. The right ventricle is grossly normal size. Right ventricular systolic function is at the lower limits of normal. There is mild to moderate mitral regurgitation. Compared to the prior echo study, there has been an increase in the severity of mitral regurgitation. The aortic valve is mildly calcified. There is minimally reduced leaflet mobility. There is no hemodynamically significant valvular aortic stenosis. Mild to moderate TR. Compared to the prior echo exam, there has been an increase in TR severity. The right ventricular systolic pressure is estimated to be at least 28 mmHg based on an estimated right atrial pressure of 3 mm Hg. There is aortic root sclerosis/calcification. Mild atherosclerotic plaque(s) in the aortic arch. There is mild luminal irregularity and echogenicity in the abdominal aorta, suggestive of aortic atherosclerotic disease. Procedure: A two-dimensional transthoracic echocardiogram with color flow and Doppler was performed. The study quality was technically adequate. Comparison is made with the echocardiogram of 08/12/2020. The patient was in sinus rhythm with heart rates between 60-80 bpm during the exam. Left Ventricle: Proximal septal thickening is noted. The left ventricle is normal in size. There is no thrombus. The ejection fraction is estimated to be 55-60%. Left ventricular systolic function is normal. There are no focal wall motion abnormalities. Diastolic parameters suggest a pseudonormalization pattern, consistent with probable elevated filling pressures. This is unchanged compared to the previous study. Right Ventricle: The right ventricle is not well visualized. The right ventricle is grossly normal size. Right ventricular systolic function is at the lower limits of normal. Atria: The left atrium is mildly dilated. The left atrium has mildly increased in size since the prior echo exam. Right atrial size is normal. There is no Doppler evidence for an interatrial shunt. Mitral Valve: There is mild mitral annular calcification. The mitral valve leaflets are slightly calcified. There is mild to moderate mitral regurgitation. Compared to the prior echo study, there has been an increase in the severity of mitral regurgitation. Aortic Valve: The aortic valve is trileaflet. The aortic valve is mildly calcified. There is minimally reduced leaflet mobility. There is no hemodynamically significant valvular aortic stenosis. No aortic regurgitation is present. Tricuspid Valve: The tricuspid valve is normal. There is mild to moderate tricuspid regurgitation. The right ventricular systolic pressure is estimated to be at least 28 mmHg based on an estimated right atrial pressure of 3 mm Hg. Compared to the prior echo exam, there has been an increase in TR severity. Pulmonic Valve: The pulmonic valve is not well seen, but is grossly normal. Great Vessels: The aortic root is normal size. There is aortic root sclerosis/calcification. The dimensions of the ascending aorta are normal. Mild atherosclerotic plaque(s) in the aortic arch. There is mild luminal irregularity and echogenicity in the abdominal aorta, suggestive of aortic atherosclerotic disease. The IVC is of normal diameter and collapses greater than 50% with a sniff. This suggests a low right atrial pressure of 3 mm Hg. Pericardium/ Pleura There is no pericardial effusion. There is no pleural effusion. MMode/2D Measurements & Calculations LVIDd: 4.4 cm LVOT diam: 2.0 cm LVIDs: 2.8 cm Ao root diam: 3.2 cm FS: 36.9 % asc Aorta Diam: 3.4 cm IVSd: 0.68 cm Ao Arch Diam (Prox Trans): 2.7 cm LVPWd: 0.77 cm LV powell. diameter/BSA (cm/m^2): 2.3 LV sys. diameter/BSA (cm/m^2): 1.5 LA A2 area: 22.1 cm2 RA long axis: 4.8 cm LA A4 area: 18.2 cm2 RA area: 16.0 cm2 LA length (vol): 4.9 cm RA vol: 44.8 ml LA vol: 69.5 ml RA : 23.4 ml/m2 LA vol index: 36.4 ml/m2 IVC diam: 1.0 cm TAPSE: 1.6 cm Doppler Measurements & Calculations Ao V2 max: 114.0 cm/sec LVOT Max Aydin: 101.4 cm/sec Ao V2 mean: 78.3 cm/sec LV V1 max P.1 mmHg Ao max P.2 mmHg LV V1 VTI: 22.4 cm Ao mean P.8 mmHg ERIK(I,D): 2.7 cm2 Ao V2 VTI: 27.1 cm ERIK(V,D): 2.9 cm2 sev ratio: 0.83 ERIK indexed to BSA (cm^2/m^2): 1.4 MV E max aydin: 77.5 cm/sec TR max aydin: 247.3 cm/sec MV A max aydin: 70.8 cm/sec TR max P.5 mmHg MV E/A: 1.1 PA V2 max: 83.4 cm/sec Med Peak E' Aydin: 5.1 cm/sec PA V2 mean: 56.0 cm/sec E/E' med: 15.2 PA mean P.4 mmHg Lat Peak E' Aydin: 9.1 cm/sec E/E' lat: 8.5 E/e' average: 11.9 MV dec time: 0.21 sec SV(LVOT): 73.4 ml Reading Physician:09:43 AM
== END ==
PROVIDERS: PCP Internal Medicine; Referring Provider Nurse Practitioner; Visit Provider Nurse Practitioner
DX: I08.3 Combined rheumatic disorders of mitral, aortic and tricuspid valves (principal); I10 Essential (primary) hypertension
CPT/HCPCS: 93306

== ENCOUNTER → 2022-10-23 14:47 | Outpatient (CLI) | payer MEDICARE, OTHER, SELFPAY ==
--- NOTE | 2022-10-23 | DI.MG.S_ITS ---
BILATERAL DIGITAL SCREENING MAMMOGRAM 3D/2D WITH CAD: 10/23/2022 CLINICAL: Routine screening. Comparison is made to exams dated: 10/04/2021 mammogram, 09/27/2020 mammogram, and 05/05/2019 mammogram - [facility]. Both breasts are heterogeneously dense, which may obscure small masses (category c / 51-75% glandular tissue). Current study was also evaluated with a Computer Aided Detection (CAD) system. There is a biopsy clip in the left breast. No significant masses, calcifications, or other findings are seen in either breast. There has been no significant interval change. IMPRESSION: BENIGN There is no mammographic evidence of malignancy. A 1 year screening mammogram is recommended. Based on the Tyrer Cuzick model (a risk assessment model) the patient's lifetime risk is 3.5% and her 10 year risk is 0.0%. According to the ACR, ACS, and NCCN guidelines, an annual breast MRI exam along with mammogram is recommended if the patient's lifetime risk is 20% or greater. This exam was interpreted at Station ID: [id number]. NOTE: For mammograms, a report in lay terms will be sent to the patient. Approximately 15% of breast malignancies will not be visualized mammographically. In the management of a palpable breast mass, a negative mammogram must not discourage biopsy of a clinically suspicious lesion. Electronically Signed By: Xander greco/summer:10/23/2022 15:36:59 letter sent: Normal Exam ACR BI-RADS Category 2: Benign Finding(s) 3342F
== END ==
PROVIDERS: PCP Internal Medicine; Referring Provider Internal Medicine; Visit Provider Internal Medicine
DX: Z12.31 Encounter for screening mammogram for malignant neoplasm of breast (principal)
CPT/HCPCS: 77063; 77067

== ENCOUNTER → 2023-08-03 07:57 | Outpatient (CLI) | payer MEDICARE, OTHER, SELFPAY ==
--- NOTE | 2023-08-03 07:58 | DI.US.S_ITS ---
PROCEDURE: US RENAL COMPLETE INDICATIONS: DECREASED RENAL FUNCTION TECHNIQUE: Real-time scanning was performed of the kidneys and bladder, with image documentation. COMPARISON: None. FINDINGS: Kidneys: Kidneys are normal in size. Right kidney measures 9.9 cm long; left kidney measures 9.7 cm long. Right renal cortical thickness is 1 cm; left renal cortical thickness is 1.1 cm. Renal cortical echotexture is normal. No hydronephrosis. Nonobstructing left kidney stone measuring 1 cm. No suspicious solid mass lesions. Bladder: Pre-void bladder volume is 123 mL. Post-void residual is 1 mL. Pre-void images demonstrate no intraluminal masses or stones. Right ureteral jet is seen. Left ureteral jet is not seen. Miscellaneous: No free pelvic fluid. IMPRESSION: No hydronephrosis. No postvoid residual. Nonobstructing left kidney stone. Dictated by: Hood Powers M.D. on 08/03/2023 at 13:49 Approved by: Hood Powers M.D. on 08/03/2023 at 13:53
== END ==
LOC: US 07:57
PROVIDERS: PCP Internal Medicine; Referring Provider Physician Assistant; Visit Provider Physician Assistant
DX: N28.9 Disorder of kidney and ureter, unspecified (principal); N20.0 Calculus of kidney
CPT/HCPCS: 76770

== ENCOUNTER → 2024-01-11 15:28 | Outpatient (CLI) | payer MEDICARE, OTHER, SELFPAY ==
[2024-01-11 16:48] LABS: Alanine Aminotransferase 21 IU/L (<35); Albumin 4.5 g/dL (3.5-5.0); Albumin Globulin Ratio 1.6 (1.0-2.8); Alkaline Phosphatase 62 U/L (38-126); Aspartate Aminotransferase 28 IU/L (14-36); BUN Creatinine Ratio 31.9 (6-22); Bilirubin Total 0.9 mg/dL (0.2-1.3); Blood Urea Nitrogen 29 mg/dL (7-17); Calcium 9.3 mg/dL (8.4-10.2); Carbon Dioxide 20 mmol/L (22-32); Chloride 102 mmol/L (98-107); Cholesterol 141 mg/dL (140-199); Estimated Glomerular Filt Rate > 60 mL/min (>60); Globulin 2.8 g/dL (1.7-4.1); Glucose 280 mg/dL (80-110); HDL Cholesterol 42 mg/dL (40-60); HEMOLYSIS 32 (0-50); LDL Cholesterol Calculated 74 mg/dL (<100); Potassium 4.2 mmol/L (3.4-5.1); Sodium 137 mmol/L (137-145); Total Protein 7.3 g/dL (6.3-8.2); Triglycerides 124 mg/dL (35-150)
== END ==
PROVIDERS: PCP Physician Assistant; Referring Provider Nurse Practitioner; Visit Provider Nurse Practitioner
DX: E78.5 Hyperlipidemia, unspecified (principal); I10 Essential (primary) hypertension
CPT/HCPCS: 36415; 80053; 80061

== ENCOUNTER 2024-08-01 12:39 | Emergency (ER) | payer MEDICARE, OTHER, SELFPAY ==
[2024-08-01 12:45] VITALS: BP 147/78; PULSE 151; RESP 22; TEMP 36.8; O2SAT 97
--- NOTE | 2024-08-01 12:47 | DI.RAD.S_ITS ---
PROCEDURE: XR CHEST 1V INDICATIONS: chest pain TECHNIQUE: One view of the chest was acquired. COMPARISON: [facility], CR, XR CHEST 1V, 07/22/2021, 15:34. [facility], CR, XR CHEST 2V, 08/11/2020, 9:15. FINDINGS AND IMPRESSION: No dense airspace consolidation or pleural effusion on this single view study. Mediastinal postsurgical changes and sternotomy wires. Heart size is at the upper limit of normal, unchanged. Degenerative osseous changes. Dictated by: Xander Jones M.D. on 08/01/2024 at 13:23 Approved by: Xander Jones M.D. on 08/01/2024 at 13:24
--- NOTE | 2024-08-01 12:58 | EKG_ITS ---
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
[2024-08-01 13:18] LABS: Add Manual Diff / Slide Review NO; Basophils Absolute Auto 0 /uL (0-100); Basophils Percent Auto 0.4 % (0-2); Eosinophils Absolute Auto 0 /uL (0-450); Eosinophils Percent Auto 0.6 % (2-4); Hematocrit 39.5 % (36-46); Hemoglobin 13.4 g/dL (12.0-16.0); Lymphocytes Absolute Auto 1300 /uL (1100-4500); Lymphocytes Percent Auto 18.2 % (25-40); Mean Corpuscular HGB Conc 33.9 % (30-36); Mean Corpuscular Hemoglobin 29.4 PG (26-34); Mean Corpuscular Volume 86.9 fL (80-100); Monocytes Absolute Auto 500 /uL (0-900); Monocytes Percent Auto 7.1 % (3-14); Neutrophils Absolute Auto 5200 /uL (1500-7000); Neutrophils Percent Auto 73.7 % (50-75); Platelet Count 229 X10^3/uL (150-400); Red Blood Cell Count 4.54 X10^6/uL (4.0-5.2); Red Cell Distribution Width 14.7 % (11.6-14.8); White Blood Cell Count 7.1 X10^3/uL (4.5-11.0)
[2024-08-01 13:30] LABS: D Dimer 1225 ng/ml (<500)
[2024-08-01 13:33] LABS: Alanine Aminotransferase 21 IU/L (<35); Albumin 4.4 g/dL (3.5-5.0); Albumin Globulin Ratio 1.5 (1.0-2.8); Alkaline Phosphatase 65 U/L (38-126); Aspartate Aminotransferase 37 IU/L (14-36); BUN Creatinine Ratio 33.3 (6-22); Bilirubin Total 1.1 mg/dL (0.2-1.3); Blood Urea Nitrogen 35 mg/dL (7-17); Calcium 9.8 mg/dL (8.4-10.2); Carbon Dioxide 20 mmol/L (22-32); Chloride 103 mmol/L (98-107); Creatine Kinase 127 U/L (30-135); Estimated Glomerular Filt Rate 54 mL/min (>60); Globulin 2.9 g/dL (1.7-4.1); Glucose 204 mg/dL (80-110); HEMOLYSIS 41 (0-50); Lipase 127 U/L (23-300); Magnesium 1.7 mg/dL (1.6-2.3); Potassium 4.1 mmol/L (3.4-5.1); Sodium 136 mmol/L (137-145); Total Protein 7.3 g/dL (6.3-8.2)
--- NOTE | 2024-08-01 13:36 | ED.ARRPALP ---
HPI - Arrhythmia/Palpitations General Chief Complaint: Arrhythmia/Palpitations Stated Complaint: rapid heartbeat Time Seen by Provider: 08/01/24 12:56 Source: patient Mode of arrival: Family Vehicle History of Present Illness HPI narrative: 79-year-old female with multiple sclerosis, diabetes, hypertension, CAD, history of coronary artery disease status post two-vessel bypass graft surgery Meek Barnhart 2021, more recently followed by cardiology Dr. Farley, recalls taking Eliquis postoperatively, no current/recent blood thinner medications, history of multiple sclerosis which causes her to have frequent falls, no known history of prior atrial fibrillation. Has had 4 days right-sided superior shoulder pain that she has been treated with tiger balm that seems to have gotten better, last night she awoke up 10:30 p.m. feeling sweaty but went back to sleep, woke up this morning with increased heart rate sensation that has been persistent through the day. No associated chest pain. No syncope or presyncopal symptoms. No nausea or vomiting. No associated diaphoresis since last night. No leg pain or swelling. No injury trauma new activities. She is still taking her metoprolol medication at 25 mg twice daily. History of frequent falls due to her multiple sclerosis, now currently on a blood thinner chronic medications. Related Data Home Medications Medication Instructions Recorded Confirmed VITAMIN D (Vitamin D3) 2,000 unit PO QDAY ##0 07/23/11 07/05/18 benazepril 20 mg tablet 20 mg PO HS ##0 07/23/11 07/05/18 calcium carbonate ##0 04/16/17 07/05/18 gabapentin 100 mg capsule ##0 04/16/17 07/05/18 glipizide 2.5 mg tablet, extended ##0 04/16/17 07/05/18 release 24 hr (Glucotrol XL) [cranberry extract] ##0 08/30/17 07/05/18 [stool softeners] ##0 08/30/17 07/05/18 multivitamin (Multiple Vitamins ##0 08/30/17 07/05/18 tablet) aspirin 81 mg tablet,delayed 81 mg PO DAILY 07/05/18 07/05/18 release (Adult Low Dose Aspirin) atorvastatin 20 mg tablet 20 mg PO DAILY 07/05/18 07/05/18 metformin 1,000 mg tablet 1,000 mg PO BID 07/05/18 07/05/18 oxybutynin chloride 5 mg tablet 5 mg PO BID 07/05/18 07/05/18 potassium 99 mg tablet 99 mg PO DAILY 07/05/18 07/05/18 turmeric root extract 500 mg 500 mg PO DAILY 07/05/18 07/05/18 capsule Previous Rx's Medication Instructions Recorded nystatin-triamcinolone 100,000 1 tye topical BID ##15 08/30/17 unit/g-0.1 % topical cream Allergies Allergy/AdvReac Type Severity Reaction Status Date / Time preservative in eye drops Allergy Unknown Uncoded 08/01/24 13:06 Patient History Social History Smoking Status: Never smoker Smoking Status: Never smoker alcohol intake frequency: other Exam Narrative Exam Narrative: GENERAL: Well-developed patient, in mild distress. HEAD: Atraumatic. Normocephalic. EYES: Pupils equal round and reactive. Extraocular motions intact. No scleral icterus. No injection or drainage. ENT: Nose without bleeding, purulent drainage. Throat without erythema, tonsillar hypertrophy or exudate. Airway patent. NECK: Trachea midline. Non tender CARDIOVASCULAR: Regular rate and rhythm without murmurs, gallops, or rubs. RESPIRATORY: Clear to auscultation. Breath sounds equal bilaterally. No wheezes, rales, or rhonchi. GASTROINTESTINAL: Abdomen soft, non-tender, nondistended. EXTREMITIES: No edema or joint tenderness. BACK: Nontender without deformity or crepitance. No flank tenderness. NEURO: AOx3. Motor functions grossly nonfocal SKIN: No rash or erythema of visible areas Initial Vital Signs Initial Vital Signs: Vital Signs Temperature 98.3 F 08/01/24 12:45 Pulse Rate 151 H 08/01/24 12:45 Respiratory Rate 22 08/01/24 12:45 Blood Pressure 147/78 H 08/01/24 12:45 Pulse Oximetry 97 08/01/24 12:45 Oxygen Delivery Method Room Air 08/01/24 12:45 Course Orders Ordered: ED Orders 08/01/24 12:47 XR chest 1V Stat Comprehensive Metabolic Panel Stat Lipase Stat Magnesium Stat NT-proBNP (BNP-Adult 18+) Stat Troponin & CK Cardiac Panel Stat EKG-12 Lead Stat 08/01/24 13:07 Complete Blood Count AUTO DIFF Stat D Dimer Stat PTT Partial Thromboplastin Kings Stat Prothrombin Time INR Stat 08/01/24 13:54 CT angio chest PE protocol Stat 08/01/24 14:50 EKG-12 Lead Stat 08/01/24 15:00 Trop I [Troponin I] Stat Discontinued Medications Aspirin (Aspirin 81 Mg Chew Tab) 324 mg PO NOW ONE Stop: 08/01/24 12:48 Last Admin: 08/01/24 13:40 Dose: 324 mg Documented By: RAMIRO Diltiazem HCl (Diltiazem 25 Mg/5 Ml Sdv) 10 mg IV NOW ONE Stop: 08/01/24 13:02 Last Admin: 08/01/24 13:35 Dose: Not Given Documented By: RAMIRO Diltiazem HCl 125 mg/ Sodium (Chloride) 125 mls @ 5 mls/hr IV TITRATE LYUBOV; Protocol Last Admin: 08/01/24 13:35 Dose: Not Given Documented By: RAMIRO Metoprolol Tartrate (Metoprolol Ir 25 Mg Tablet) 12.5 mg PO NOW ONE Stop: 08/01/24 13:36 Last Admin: 08/01/24 13:38 Dose: 12.5 mg Documented By: RAMIRO Vital Signs Vital signs: Vital Signs - 8 hr 08/01/24 12:45 08/01/24 13:38 08/01/24 16:15 Temperature 98.3 F Pulse Rate 151 H 79 70 Respiratory Rate 22 14 16 Blood Pressure 147/78 H 107/65 116/61 Pulse Oximetry 97 98 Oxygen Delivery Method Room Air Room Air Room Air MDM - Arrhythmia/Palpitations Lab Data Attestation: I reviewed the patient's lab results. Lab results narrative: White blood cell count 7100, hemoglobin 13.4, platelets 229,000. Glucose 204. BUN 35 with creatinine 1.05 noted. Sodium 136, potassium 4.1, serum CO2 20. Liver functions and lipase normal. Troponin negative/unmeasurable. BNP 2200 elevated, however has been 7000 +in past comparisons. 08/01/24 13:07 08/01/24 12:47 Labs: Lab Results 08/01/24 08/01/24 08/01/24 Range/Units 12:47 13:07 15:00 WBC 7.1 (4.5-11.0) X10^3/uL RBC 4.54 (4.0-5.2) X10^6/uL Hgb 13.4 (12.0-16.0) g/dL Hct 39.5 (36-46) % MCV 86.9 (80-100) fL MCH 29.4 (26-34) PG MCHC 33.9 (30-36) % RDW 14.7 (11.6-14.8) % Plt Count 229 (150-400) X10^3/uL Neut % (Auto) 73.7 (50-75) % Lymph % (Auto) 18.2 L (25-40) % Cooper % (Auto) 7.1 (3-14) % Eos % (Auto) 0.6 L (2-4) % Baso % (Auto) 0.4 (0-2) % Neut # (Auto) 5200 (4029-6648) /uL Lymph # (Auto) 1300 (1207-5241) /uL Cooper # (Auto) 500 (0-900) /uL Eos # (Auto) 0 (0-450) /uL Baso # (Auto) 0 (0-100) /uL PT 11.7 (9.4-12.5) SECONDS INR 1.0 (0.9-1.3) APTT 35 (25.1-36.5) SECONDS D-Dimer 1225 H (<500) ng/ml Sodium 136 L (137-145) mmol/L Potassium 4.1 (3.4-5.1) mmol/L Chloride 103 (98-107) mmol/L Carbon Dioxide 20 L (22-32) mmol/L BUN 35 H (7-17) mg/dL Creatinine 1.05 H (0.52-1.04) mg/dL Estimated GFR 54 L (>60) mL/min BUN/Creatinine Ratio 33.3 H (6-22) Glucose 204 H (80-110) mg/dL Calcium 9.8 (8.4-10.2) mg/dL Magnesium 1.7 (1.6-2.3) mg/dL Total Bilirubin 1.1 (0.2-1.3) mg/dL AST 37 H (14-36) IU/L ALT 21 (<35) IU/L Alkaline Phosphatase 65 (38-126) U/L Total Creatine Kinase 127 (30-135) U/L Troponin I < 0.012 < 0.012 (0.01-0.034) ng/mL NT-Pro-B Natriuret Pep 2270 H (<450) pg/mL Total Protein 7.3 (6.3-8.2) g/dL Albumin 4.4 (3.5-5.0) g/dL Globulin 2.9 (1.7-4.1) g/dL Albumin/Globulin Ratio 1.5 (1.0-2.8) Lipase 127 (23-300) U/L Imaging Data CT angiogram chest PE protocol: Radiologist's Impresson: Close Chest CTA (Signed) Fly Crocker - 08/01/24 Chest X-Ray (Signed) Xander Jones - 08/01/24 Launch?Image [address] [address] [address] Scan Report Signed Patient: Veronica Quan MR#: [id number] : 1945 Acct:[id number] Age/Sex: 79 / F Date of Service: 08/01/24 Loc: ED Accession Number: [id number] Procedure: CT angio chest PE protocol Ordering Provider: Haroon Centeno MD PROCEDURE: CT ANGIO CHEST PE PROTOCOL INDICATIONS: new Afib with RVR, Ddimer high TECHNIQUE: After the administration of intravenous contrast, 2 mm thick sections acquired from the pulmonary apices to the posterior costophrenic angles. 3-dimensional maximum intensity projection (MIP) coronal and sagittal reformats were then acquired through the thorax. For radiation dose reduction, the following was used: automated exposure control, adjustment of mA and/or kV according to patient size. COMPARISON: [facility], CT, CT ANGIO CHEST PE PROTOCOL, 07/22/2021, 17:21. FINDINGS: Image quality: Diagnostic. Pulmonary arteries: Pulmonary arteries are prominent in size, and demonstrate no intraluminal filling defects to suggest central pulmonary embolism. Lower Neck: No enlarged lymph nodes. Thyroid: No thyroid nodules which require sonographic follow up, per consensus guidelines. Axillae: No enlarged lymph nodes. Chest Wall: Median sternotomy wires are seen. Bones: Unremarkable. Lungs and Pleura: No pneumothorax or pleural effusions. Linear scarring/atelectasis in anterior medial aspect of bilateral upper lobes are seen. Dependent atelectasis are seen in posterior aspect of bilateral lower lobes. No consolidation or suspicious nodules. Heart: Heart size is enlarged. No pericardial effusion. Thoracic Vessels: No aortic aneurysm. 2 vessel coronary artery atherosclerotic calcifications are seen. Mediastinum and Fatmata: No enlarged lymph nodes. Subcentimeter lymph nodes are seen scattered in mediastinum measures up to 8 mm in short axis diameter in precarinal space. Esophagus: No wall thickening. Small hiatal hernia. Upper Abdomen: Visualized upper abdomen solid organs and bowel loops appear normal. Prior surgery from gastric banding. IMPRESSION: 1. No pulmonary embolus. Enlarged main pulmonary artery which can be seen associated with pulmonary vascular hypertension. 2. Scarring/atelectasis in bilateral lower lung pineda as above. No focal infiltrate, pleural effusion or pneumothorax. 3. Cardiomegaly, no pericardial effusion. Moderate 2 vessel coronary artery atherosclerotic calcifications. No thoracic aortic aneurysm or gross dissection. No gross mediastinal or hilar lymphadenopathy. Dictated by: Fly Crocker M.D. on 08/01/2024 at 14:35 Approved by: Fly Crocker M.D. on 08/01/2024 at 14:39 Chest x-ray: Radiologist's Impresson: [place] [address] XRay Report Signed Patient: Veronica Quan MR#: [id number] : 1945 Acct:[id number] Age/Sex: 79 / F Date of Service: 08/01/24 Loc: ED Accession Number: [id number] Procedure: XR chest 1V Ordering Provider: Haroon Centeno MD PROCEDURE: XR CHEST 1V INDICATIONS: chest pain TECHNIQUE: One view of the chest was acquired. COMPARISON: [facility], CR, XR CHEST 1V, 07/22/2021, 15:34. [facility], CR, XR CHEST 2V, 08/11/2020, 9:15. FINDINGS AND IMPRESSION: No dense airspace consolidation or pleural effusion on this single view study. Mediastinal postsurgical changes and sternotomy wires. Heart size is at the upper limit of normal, unchanged. Degenerative osseous changes. Dictated by: Xander Jones M.D. on 08/01/2024 at 13:23 Approved by: Xander Jones M.D. on 08/01/2024 at 13:24 ECG Data Attestation: I personally reviewed and interpreted this ECG as follows: Interpretation: 1258, atrial fibrillation with rapid ventricular response rate of 128, no obvious ST segment elevation or depression changes. QRS 74, QTC 449. 1340, sinus rhythm with first-degree AV block, TN 222, no obvious ST segment elevation or depression changes. QRS 76, QTC 415. MDM Narrative Medical decision making narrative: 79-year-old female with history of multiple sclerosis, diabetes mellitus, hypertension, CAD status-post prior two-vessel CABG, no chronic blood thinner medications, does take metoprolol, last night with diaphoresis, this morning awakened with sensation of fast heart rate sensation. No prior AFib diagnosis known to patient. Initial EKG and polisher dial suggestive atrial fibrillation narrow complex with rapid ventricular response 120, normotensive. Patient stable, initial order for IV diltiazem was then canceled, as patient shortly thereafter converted to normal sinus rhythm on the monitor, confirmed by 2nd EKG. Labs pending. Electrolytes unremarkable. White blood cell count not elevated. BNP 2000 elevated but has been further elevated in the past. Troponin negative. D-dimer quite elevated, GFR favorable. CTA chest ordered PE protocol. CTA chest PE protocol negative for pulmonary embolus, no mention of infiltrates, cardiomegaly and coronary artery calcifications noted. See radiology report. Patient takes 25 mg metoprolol, we will give an additional 12.5 mg for now. We will consult Cardiology regarding disposition plan/medications. She does not have any anticoagulation on board at this time, but has history of multiple sclerosis and fairly frequent falls, unclear she is an appropriate Eliquis candidate. 1500, case discussed with cardiology Dr. Blanco, advises patient be discharged on decreased dose of benazepril from 20 mg daily to 10 mg daily, so that her blood pressure will hopefully tolerate any increased dose in her metoprolol from 25 mg by mouth twice daily to 37.5 mg twice daily. Follow up with her an/sqq 89(v)[address] Farley, call office early next week. Patient amenable to above recommendations, discharged home, has supply of metoprolol and can decrease dose of benazepril, has pill cutters for pill reduction and increased doses. Discharged home. Follow up with Cardiology. Return precautions discussed. Discharge Plan Departure Patient Disposition: Home Clinical Impression: Paroxysmal atrial fibrillation Activity Restrictions/Additional Instructions: Ms Quan, You had episode of sweating last night, fast heart rate racing sensation today. On polisher dial and initial EKG you seemed to be in atrial fibrillation with rapid heart rate response, which apparently would be a new diagnosis. We are about to give IV medications to help slow down the rate when you spontaneously converted to normal sinus rhythm on the monitor. Your screening labs were remarkable for a markedly elevated D-dimer, sometimes this can be associated with blood clots to the lungs or other conditions, prompting further imaging. CT angiogram of the chest was therefore performed, no blood clots to the lungs confirmed, though there was cardiomegaly enlargement of the heart, and calcifications of your coronary vessels. EKG and serial blood tests not suggestive of heart attack at this time. You were given an additional oral dose of metoprolol 12.5 mg, to take it in addition to your metoprolol 25 mg daily dose. Case was discussed with on-call cardiology Dr. Blanco. He suggested decreased dose of benazepril from 20 mg to 10 mg in order to tolerate in increased dose of metoprolol from 25 mg daily to 37.5 mg daily. You have a pill cutter, you can take half pill benazepril instead of full pill, and you can take 1-1/2 pills of the metoprolol instead of 1 pill. 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 Farley early next week. We also discussed anticoagulation, but you reported a history of multiple sclerosis and fairly frequent falls, with some increased risks of bleeding due to falls if you were to start the anticoagulation Eliquis or some other strategy. Discuss this further with your own an/sqq 89(v)15 sonar system journeyman in close follow up. Return earlier to this/nearest emergency department for any change worsening symptoms or any concerns prior. Thank you for allowing our team to take care of you today. Prescriptions: No Action metformin 1,000 mg tablet 1,000 mg PO BID atorvastatin 20 mg tablet 20 mg PO DAILY oxybutynin chloride 5 mg tablet 5 mg PO BID aspirin [Adult Low Dose Aspirin] 81 mg tablet,delayed release (DR/EC) 81 mg PO DAILY potassium 99 mg tablet 99 mg PO DAILY turmeric root extract 500 mg capsule 500 mg PO DAILY benazepril 20 MG tablet 20 mg PO HS Qty: 0 VITAMIN D (Vitamin D3) 2,000 unit PO QDAY Qty: 0 glipizide [Glucotrol XL] 2.5 mg tablet extended release 24hr Qty: 0 calcium carbonate 200 mg calcium (500 mg) tablet,chewable Qty: 0 gabapentin 100 mg capsule Qty: 0 multivitamin [Multiple Vitamins] 1 EACH tablet Qty: 0 [cranberry extract] Qty: 0 [stool softeners] Qty: 0 nystatin-triamcinolone 15 GM cream 1 tye Topical BID Qty: 15 1RF Referrals: Sunshine Boothe PA-C [Primary Care Provider] - Stand Alone Forms: Patient Portal/API/Survey
[2024-08-01 13:38] VITALS: BP 107/65; PULSE 79; RESP 14
[2024-08-01] MEDS: METOPROLOL IR 25 MG TABLET 12.5 MG PO (13:38)
[2024-08-01] MEDS: ASPIRIN 81 MG CHEW TAB 324 MG PO (13:40)
--- NOTE | 2024-08-01 13:40 | EKG_ITS ---
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
--- NOTE | 2024-08-01 13:44 | PC.NURSE ---
COMMUNITY RELATIONS ASSISTANT Note: Repeat EKG given directly to Dr. Centeno.
[2024-08-01 13:45] LABS: NT-proBNP (BNP-Adult 18+) 2270 pg/mL (<450); Troponin I < 0.012 ng/mL (0.01-0.034)
--- NOTE | 2024-08-01 13:54 | DI.CT.S_ITS ---
PROCEDURE: CT ANGIO CHEST PE PROTOCOL INDICATIONS: new Afib with RVR, Ddimer high TECHNIQUE: After the administration of intravenous contrast, 2 mm thick sections acquired from the pulmonary apices to the posterior costophrenic angles. 3-dimensional maximum intensity projection (MIP) coronal and sagittal reformats were then acquired through the thorax. For radiation dose reduction, the following was used: automated exposure control, adjustment of mA and/or kV according to patient size. COMPARISON: [facility], CT, CT ANGIO CHEST PE PROTOCOL, 07/22/2021, 17:21. FINDINGS: Image quality: Diagnostic. Pulmonary arteries: Pulmonary arteries are prominent in size, and demonstrate no intraluminal filling defects to suggest central pulmonary embolism. Lower Neck: No enlarged lymph nodes. Thyroid: No thyroid nodules which require sonographic follow up, per consensus guidelines. Axillae: No enlarged lymph nodes. Chest Wall: Median sternotomy wires are seen. Bones: Unremarkable. Lungs and Pleura: No pneumothorax or pleural effusions. Linear scarring/atelectasis in anterior medial aspect of bilateral upper lobes are seen. Dependent atelectasis are seen in posterior aspect of bilateral lower lobes. No consolidation or suspicious nodules. Heart: Heart size is enlarged. No pericardial effusion. Thoracic Vessels: No aortic aneurysm. 2 vessel coronary artery atherosclerotic calcifications are seen. Mediastinum and Fatmata: No enlarged lymph nodes. Subcentimeter lymph nodes are seen scattered in mediastinum measures up to 8 mm in short axis diameter in precarinal space. Esophagus: No wall thickening. Small hiatal hernia. Upper Abdomen: Visualized upper abdomen solid organs and bowel loops appear normal. Prior surgery from gastric banding. IMPRESSION: 1. No pulmonary embolus. Enlarged main pulmonary artery which can be seen associated with pulmonary vascular hypertension. 2. Scarring/atelectasis in bilateral lower lung pineda as above. No focal infiltrate, pleural effusion or pneumothorax. 3. Cardiomegaly, no pericardial effusion. Moderate 2 vessel coronary artery atherosclerotic calcifications. No thoracic aortic aneurysm or gross dissection. No gross mediastinal or hilar lymphadenopathy. Dictated by: Fly Crocker M.D. on 08/01/2024 at 14:35 Approved by: Fly Crocker M.D. on 08/01/2024 at 14:39
[2024-08-01 14:36] LABS: Prothrombin Time 11.7 SECONDS (9.4-12.5)
[2024-08-01 14:38] LABS: PTT Partial Thromboplastin Tim 35 SECONDS (25.1-36.5)
[2024-08-01 15:44] LABS: Troponin I < 0.012 ng/mL (0.01-0.034)
[2024-08-01 16:15] VITALS: BP 116/61; PULSE 70; RESP 16; O2SAT 98
== END 2024-08-01 16:17 | disposition home or self-care (01) ==
PROVIDERS: Emergency Provider Emergency Medicine; PCP Physician Assistant
DX: I48.0 Paroxysmal atrial fibrillation (principal); R07.9 Chest pain, unspecified; I44.0 Atrioventricular block, first degree; G35 Multiple sclerosis
CPT/HCPCS: 36415; 71045; 71275; 80053; 82550; 83690; 83735; 83880; 84484; 85025; 85379; 85610; 85730; 93005; 93010; 99284; 99285; Q9967

== ENCOUNTER → 2024-08-21 13:29 | Outpatient (CLI) | payer MEDICARE, OTHER, SELFPAY ==
--- NOTE | 2024-08-21 13:30 | DI.MG.S_ITS ---
MM screening mammo BI: 08/21/2024. BI-RADS: 2 CLINICAL: 79-year old female for bilateral screening mammogram. Tyrer-Cuzick lifetime risk of 3.6%. No personal or first-degree family history of breast cancer. The patient had prior bilateral breast biopsies. PRIOR EXAMS 10/23/2022, 10/04/2021, 09/27/2020, 05/05/2019, 11/04/2018, 10/16/2018, 10/11/2017, 08/18/2016, 08/12/2015. MAMMOGRAPHY TECHNIQUE: 2D and 3D (tomosynthesis) digital mammographic views obtained, with additional images as needed for full coverage. Current study was also evaluated with a Computer Aided Detection (CAD) system. DENSITY C. The breasts are heterogeneously dense, which may obscure small masses. MAMMOGRAPHY FINDINGS Right: Benign-appearing calcification noted on the right. There are no suspicious masses, calcifications, or other findings in the breast. No significant change from comparison. Left: Biopsy marker present on the left. Benign-appearing calcification noted on the left. There are no suspicious masses, calcifications, or other findings in the breast. No significant change from comparison. IMPRESSION: * No evidence of malignancy with benign findings. RECOMMENDATIONS Bilateral * Annual screening mammography. OVERALL ASSESSMENT CATEGORY BI-RADS-2: Benign. The [employer] recommends annual screening mammography beginning at age 40 for women with average risk of breast cancer. ELECTRONICALLY SIGNED: Manda Wright M.D. on 08/21/2024 at 05:57:41 PM PT Interpreting Station ID: [id number]
== END ==
PROVIDERS: PCP Physician Assistant; Referring Provider Physician Assistant; Visit Provider Physician Assistant
DX: Z12.31 Encounter for screening mammogram for malignant neoplasm of breast (principal); R92.333 Mammographic heterogeneous density, bilateral breasts
CPT/HCPCS: 77063; 77067

== ENCOUNTER → 2024-09-30 12:20 | Outpatient (CLI) | payer MEDICARE, OTHER, SELFPAY ==
--- NOTE | 2024-09-30 | DI.NM.S_ITS ---
PROCEDURE: NM BRANDON PERF SPECT R&S PHARM Rest and pharmacological stress myocardial perfusion SPECT with gated imaging and ejection fraction RADIOPHARMACEUTICAL: 24.5 mCi Tc-99m tetrafosmin IV at rest and 25.8 mCi Tc-99m tetrafosmin IV at peak effect of pharmacological stress. Swe-[id number] was performed. INDICATIONS: PAROX AFIB PQRS ATTESTATIONS: Measure 322 - Is this imaging test primarily performed on a low-risk surgery patient for preoperative evaluation within 30 days preceding their low-risk non-cardiac surgery? Low-risk surgery is defined as cardiac or myocardial infarction less than 1%, including (but not limited to) endoscopic procedures, superficial procedures, cataract surgery, and excisional breast surgery: Answer: No Measure 323 - Is this imaging test performed primarily for the monitoring of an asymptomatic patient who had percutaneous coronary intervention on the visit date or within 2 years of the visit date? Answer: No Measure 324 - Is this imaging test performed primarily for the initial detection and risk assessment on an asymptomatic, low coronary heart disease patient? Low CHD risk definition = clinicians should consider the maximum number of available patient factors used to estimate risk based on Brutus (ATP III criteria), typically age, gender, diabetes, smoking status, and use of blood pressure medication, and integrate age appropriate estimates for missing elements, such as LDL or standard blood pressure. Answer: No TECHNIQUE: Radiopharmaceutical was injected at peak stress test, and also at rest. SPECT images were obtained. SPECT myocardial perfusion images were displayed in short axis, horizontal long axis, and vertical long axis views. Gated images were reviewed using [employer] software. COMPARISON: None. CARDIAC STRESS: A pharmacologic stress test was performed under the supervision of an attending staff, using an infusion of 0.4 mg of Lexiscan. Hemodynamic data: There is normal blood pressure and heart rate response to pharmacologic stress. Symptoms: The patient denied anginal chest pain. Aminophylline: None EKG: No diagnostic changes of ischemia; no ectopy. FINDINGS: Raw data: There is good myocardial uptake of radiotracer. No significant motion artifacts. Cgnl-qs-cnhzl ratio is 0.31 (normal is less than 0.38 for tetrafosmin tracer). Left ventricle function: Gated images demonstrate normal left ventricular wall thickening. No segmental wall motion abnormalities. No transient ischemic dilation; TID is 0.78 (normal less than 1.3). Left ventricle resting end diastolic volume is 75 mL. Left ventricle stress ejection fraction is 92; normal range is above 45%. Myocardial perfusion: Resting images had mild to moderate hypoperfusion in the inferior lateral segment. Stress images had no perfusion defects. Prone images had diffuse uniformed hypoperfusion. IMPRESSION: 1. Negative Lexiscan myocardial perfusion scan for ischemia and infarction. Dictated by: Carlos Crocker M.D. on 10/01/2024 at 17:41 Approved by: Carlos Crocker M.D. on 10/01/2024 at 17:44
--- NOTE | 2024-09-30 | DI.ECHO.S_ITS ---
[place] [facility] : : [address] : : [place] : : [id number] : : Phone: [phone] Echocardiogram Report + + :Name: KENDRICK BULLARD Study Date: 09/30/2024 Height: 66 in : :[facility] ReadingLocation: Weight: 165 lb : : Gender: Female BSA: 1.8 m2 : :: 1945 Age: 79 yrs BP: 127/82 mmHg: :Reason For Study: ATRIAL FIBRILLATION : :Ordering Physician: MELQUIADES, : :ROMAN Performed By: Morgan Villegas : :Referring: ROMAN ARNETT : + + Interpretation Summary The left ventricle is normal in size. The left ventricular ejection fraction is normal. The ejection fraction is estimated to be 55-60%. No significant change in LVEF from the previous study. The right ventricle is grossly normal size. The right ventricular systolic function is normal. There is mild mitral regurgitation. Previously mild to moderate MR. There is mild tricuspid regurgitation. Previously mild to moderate TR. The right ventricular systolic pressure is estimated to be at least 25 mmHg based on an estimated right atrial pressure of 3 mm Hg. There is aortic root sclerosis/calcification. Procedure: A two-dimensional transthoracic echocardiogram with color flow and Doppler was performed. The study quality was technically good. Comparison is made with the echocardiogram of 08/09/2022. The patient was in sinus bradycardia with heart rates between 53-59 bpm during the exam. Left Ventricle: The left ventricle is normal in size. Proximal septal thickening is noted. There is no echo evidence for significant left ventricular outflow tract obstruction. There is no thrombus. The ejection fraction is estimated to be 55-60%. The left ventricular ejection fraction is normal. There are no focal wall motion abnormalities. MV E/A: 1.4 Med Peak E' Aydin: 8.7 cm/sec E/E' med: 11.5. Right Ventricle: The right ventricle is grossly normal size. The right ventricular systolic function is normal. Atria: The left atrial size is normal. The left atrium has mildly decreased in size since the prior echo exam. Right atrial size is normal. There is no Doppler evidence for an interatrial shunt. Mitral Valve: There is mild mitral annular calcification. There is mild mitral regurgitation. Aortic Valve: The aortic valve is trileaflet. The aortic valve is mildly calcified. There is no aortic valve stenosis. No aortic regurgitation is present. Tricuspid Valve: The tricuspid valve is not well visualized, but is grossly normal. There is mild tricuspid regurgitation. The right ventricular systolic pressure is estimated to be at least 25 mmHg based on an estimated right atrial pressure of 3 mm Hg. Pulmonic Valve: The pulmonic valve is not well seen, but is grossly normal. There is trace pulmonic regurgitation. Great Vessels: The aortic root is normal size. There is aortic root sclerosis/calcification. The dimensions of the ascending aorta are normal. Aortic arch was not well-visualized. The pulmonary artery is normal size. The IVC is of normal diameter and collapses greater than 50% with a sniff. This suggests a low right atrial pressure of 3 mm Hg. Pericardium/ Pleura There is no pericardial effusion. There is no pleural effusion. MMode/2D Measurements & Calculations LVIDd: 4.1 cm LVOT diam: 2.0 cm LVIDs: 2.7 cm Ao root diam: 3.2 cm FS: 34.2 % asc Aorta Diam: 3.3 cm EPSS: 0.42 cm IVSd: 0.94 cm LVPWd: 0.82 cm LV powell. diameter/BSA (cm/m^2): 2.2 LV sys. diameter/BSA (cm/m^2): 1.5 LA A2 area: 16.5 cm2 RA long axis: 4.4 cm LA A4 area: 17.8 cm2 RA area: 13.9 cm2 LA length (vol): 4.5 cm RA vol: 37.7 ml LA vol: 55.5 ml RA : 20.5 ml/m2 LA vol index: 30.1 ml/m2 IVC diam: 0.99 cm TAPSE: 1.9 cm Doppler Measurements & Calculations Ao V2 max: 130.5 cm/sec LVOT Max Aydin: 106.6 cm/sec Ao V2 mean: 84.5 cm/sec LV V1 max P.5 mmHg Ao max P.8 mmHg LV V1 VTI: 21.3 cm Ao mean P.2 mmHg ERIK(I,D): 2.1 cm2 Ao V2 VTI: 30.9 cm ERIK(V,D): 2.5 cm2 sev ratio: 0.69 ERIK indexed to BSA (cm^2/m^2): 1.2 MV E max aydin: 99.9 cm/sec TR max aydin: 235.8 cm/sec MV A max aydin: 71.8 cm/sec TR max P.2 mmHg MV E/A: 1.4 PA V2 max: 82.0 cm/sec Med Peak E' Aydin: 8.7 cm/sec PA V2 mean: 51.4 cm/sec E/E' med: 11.5 PA mean P.2 mmHg Lat Peak E' Aydin: 8.9 cm/sec PA pr(Accel): 60.2 mmHg E/E' lat: 11.2 E/e' average: 11.3 MV dec time: 0.12 sec SV(LVOT): 66.0 ml Reading Physician:04:44 PM
== END ==
LOC: NUCM 12:21
PROVIDERS: PCP Physician Assistant; Referring Provider Physician Assistant; Visit Provider Internal Medicine Cardiovascular Disease
DX: I48.0 Paroxysmal atrial fibrillation (principal); I34.0 Nonrheumatic mitral (valve) insufficiency; I07.1 Rheumatic tricuspid insufficiency; I70.0 Atherosclerosis of aorta
CPT/HCPCS: 78452; 93017; 93306; A9502; J2785

== ENCOUNTER → 2024-10-17 08:54 | Outpatient (CLI) | payer MEDICARE, OTHER, SELFPAY ==
[2024-10-17 10:04] LABS: Cholesterol 110 mg/dL (140-199); HDL Cholesterol 48 mg/dL (40-60); LDL Cholesterol Calculated 49 mg/dL (<100); Triglycerides 65 mg/dL (35-150)
== END ==
PROVIDERS: PCP Physician Assistant; Referring Provider Internal Medicine Cardiovascular Disease; Visit Provider Internal Medicine Cardiovascular Disease
DX: E78.5 Hyperlipidemia, unspecified (principal)
CPT/HCPCS: 36415; 80061

== ENCOUNTER → 2025-02-12 11:36 | Outpatient (CLI) | payer MEDICARE, OTHER, SELFPAY ==
[2025-02-12 12:35] LABS: Add Manual Diff / Slide Review NO; Hematocrit 39.3 % (36-46); Hemoglobin 13.0 g/dL (12.0-16.0); Lymphocytes Absolute Auto 1400 /uL (1100-4500); Mean Corpuscular HGB Conc 33.2 % (30-36); Mean Corpuscular Hemoglobin 28.8 PG (26-34); Mean Corpuscular Volume 86.9 fL (80-100); Platelet Count 177 X10^3/uL (150-400)
[2025-02-12 13:18] LABS: Blood Urea Nitrogen 18 mg/dL (7-17); Calcium 9.1 mg/dL (8.4-10.2); Carbon Dioxide 23 mmol/L (22-32); Chloride 108 mmol/L (98-107); Estimated Glomerular Filt Rate > 60 mL/min (>60); Glucose 130 mg/dL (70-99); HEMOLYSIS < 15 (0-50); Potassium 4.4 mmol/L (3.4-5.1); Sodium 141 mmol/L (137-145)
== END ==
PROVIDERS: PCP Physician Assistant; Referring Provider Internal Medicine Cardiovascular Disease; Visit Provider Internal Medicine Cardiovascular Disease
DX: I48.0 Paroxysmal atrial fibrillation (principal)
CPT/HCPCS: 36415; 80048; 85025

== ENCOUNTER 2025-02-17 16:44 | Emergency (ER) | payer MEDICARE, OTHER, SELFPAY ==
[2025-02-17 16:49] VITALS: BP 135/63; PULSE 66; RESP 16; TEMP 37.1; O2SAT 96; BMI 29.1
[2025-02-17 18:53] VITALS: PULSE 60; O2SAT 96
[2025-02-17 18:54] VITALS: BP 138/66; PULSE 60; RESP 18; O2SAT 96
--- NOTE | 2025-02-17 20:38 | ED.EXTPRO ---
HPI - Extremity Problem General Chief complaint: Extremity Problem,Nontraumatic Stated complaint: heart ablasion yesterday, feet swollen Time Seen by Provider: 02/17/25 20:23 Source: patient Mode of arrival: Ambulatory History of Present Illness HPI Narrative: 79-year-old female patient with a history of type 2 diabetes hypertension, dyslipidemia, CAD/CABG, chronic venous insufficiency and atrial fibrillation with an ablation for that problem yesterday. She complains of worsening lower leg edema since yesterday with no other complaint. No pain, warmth or redness. No shortness of breath or chest pain. Related Data Home Medications ?Medication ?Instructions ?Recorded ?Confirmed VITAMIN D (Vitamin D3) 2,000 unit PO QDAY ##0 07/23/11 07/05/18 benazepril 20 mg tablet 20 mg PO HS ##0 07/23/11 07/05/18 calcium carbonate ##0 04/16/17 07/05/18 gabapentin 100 mg capsule ##0 04/16/17 07/05/18 glipizide 2.5 mg tablet, extended ##0 04/16/17 07/05/18 release 24 hr (Glucotrol XL) [cranberry extract] ##0 08/30/17 07/05/18 [stool softeners] ##0 08/30/17 07/05/18 multivitamin (Multiple Vitamins ##0 08/30/17 07/05/18 tablet) aspirin 81 mg tablet,delayed 81 mg PO DAILY 07/05/18 07/05/18 release (Adult Low Dose Aspirin) atorvastatin 20 mg tablet 20 mg PO DAILY 07/05/18 07/05/18 metformin 1,000 mg tablet 1,000 mg PO BID 07/05/18 07/05/18 oxybutynin chloride 5 mg tablet 5 mg PO BID 07/05/18 07/05/18 potassium 99 mg tablet 99 mg PO DAILY 07/05/18 07/05/18 turmeric root extract 500 mg 500 mg PO DAILY 07/05/18 07/05/18 capsule Previous Rx's ?Medication ?Instructions ?Recorded nystatin-triamcinolone 100,000 1 tye topical BID ##15 08/30/17 unit/g-0.1 % topical cream Allergies Allergy/AdvReac Type Severity Reaction Status Date / Time preservative in eye drops Allergy Unknown Uncoded 02/17/25 16:49 Review of Systems Review of Systems ROS Unobtainable: All systems reviewed & are unremarkable except as noted in HPI and below Musculoskeletal Musculoskeletal: Reports as per HPI Patient History alcohol intake frequency: other Exam Narrative Exam Narrative: General: Alert and conversant. No distress. Appears well nourished and well hydrated Craniofacial: No evidence of trauma. Nontender and no swelling. Neck: No tenderness or adenopathy. No meningismus. No JVD Lungs: Clear to auscultation with good air movement. No wheezing, rales or rhonchi. No respiratory distress Cardiac: Regular rate and rhythm with no appreciable murmur or gallop Musculoskeletal: 2 to 3+ edema of the lower extremities with no tenderness, erythema or warmth. Otherwise Exam of the extremities, axial spine and ribcage reveals no deformity, bony tenderness or swelling. Range of motion intact Neuro: Alert and oriented. Cranial nerves, motor, sensory and cerebellar all grossly intact. No focal deficit Skin: Warm and normal color. No rashes Psychological: Normal affect and interaction. No evidence of delusion or psychosis. Normal mood. Initial Vital Signs Initial Vital Signs: Vital Signs Temperature 98.8 F 02/17/25 16:49 Pulse Rate 66 02/17/25 16:49 Respiratory Rate 16 02/17/25 16:49 Blood Pressure 135/63 02/17/25 16:49 Pulse Oximetry 96 02/17/25 16:49 Oxygen Delivery Method Room Air 02/17/25 16:49 Course Vital Signs Vital signs: Vital Signs - 8 hr 02/17/25 16:49 02/17/25 18:53 02/17/25 18:54 Temperature 98.8 F Pulse Rate 66 60 60 Respiratory Rate 16 18 Blood Pressure 135/63 Pulse Oximetry 96 96 96 Oxygen Delivery Method Room Air 02/17/25 18:54 Temperature Pulse Rate Respiratory Rate Blood Pressure 138/66 Pulse Oximetry Oxygen Delivery Method MDM - Extremity (Nontraumatic) MDM Narrative Medical decision making narrative: Patient has exacerbation of her chronic venous insufficiency/edema with no evidence of DVT or infection. No evidence of CHF based on physical exam. Possibly related to her procedure and immobility or relative immobility. I do not believe she needs further intervention in the ER. Plan is for compression hose, leg elevation and monitor symptoms. Follow up with primary care for recheck. Return to the ER if worse Discharge Plan Departure Patient Disposition: Home Clinical Impression: Lower extremity edema, Chronic venous insufficiency Instructions: Chronic Venous Insufficiency, DI for Edema Due to Venous Stasis Activity Restrictions/Additional Instructions: Continue with compression stockings, leg elevation and fluid and salt restriction. Follow up with your doctor for recheck within 5 days. Return to the ER if worse Prescriptions: No Action metformin 1,000 mg tablet 1,000 mg PO BID atorvastatin 20 mg tablet 20 mg PO DAILY oxybutynin chloride 5 mg tablet 5 mg PO BID aspirin [Adult Low Dose Aspirin] 81 mg tablet,delayed release (DR/EC) 81 mg PO DAILY potassium 99 mg tablet 99 mg PO DAILY turmeric root extract 500 mg capsule 500 mg PO DAILY benazepril 20 MG tablet 20 mg PO HS Qty: 0 VITAMIN D (Vitamin D3) 2,000 unit PO QDAY Qty: 0 glipizide [Glucotrol XL] 2.5 mg tablet extended release 24hr Qty: 0 calcium carbonate 200 mg calcium (500 mg) tablet,chewable Qty: 0 gabapentin 100 mg capsule Qty: 0 multivitamin [Multiple Vitamins] 1 EACH tablet Qty: 0 [cranberry extract] Qty: 0 [stool softeners] Qty: 0 nystatin-triamcinolone 15 GM cream 1 tye Topical BID Qty: 15 1RF Referrals: Sunshine Boothe PA-C [Primary Care Provider, Medical] Stand Alone Forms: Patient Portal/API
[2025-02-17 21:29] VITALS: BP 144/68; PULSE 84; RESP 16; O2SAT 99
== END 2025-02-17 20:55 | disposition home or self-care (01) ==
PROVIDERS: Emergency Provider Emergency Medicine; PCP Physician Assistant
DX: R60.0 Localized edema (principal); I87.2 Venous insufficiency (chronic) (peripheral)
CPT/HCPCS: 99281